=== PATIENT | male | born 1945 | race Caucasian/White ===

== ENCOUNTER → 2019-02-06 | Outpatient (CLI) | payer MEDICARE ==
[~2019-02-06] VITALS: Ht 170 cm; Wt 80.0 kg
[~2019-02-06] MED LIST: CATHETER FLUSH 10 ML SYR IV PRN; REGADENOSON 0.4 MG/5 ML SYR (LEXISCAN) IV ONE; meTOprolol 5 MG/5 ML (LOPRESSOR) VIAL IV ONE; meTOprolol 5 MG/5 ML (LOPRESSOR) VIAL ONE
[2019-02-06 13:22] VITALS: BP 152/100
[2019-02-06 13:23] VITALS: BP 157/92
--- NOTE | 2019-02-06 15:15 | STRESS TEST ---
DATE OF SERVICE: 02/06/2019 LEXISCAN MYOVIEW STRESS TEST REPORT REFERRING PHYSICIAN: Jorge Martinez MD Baseline heart rate is 77. Baseline blood pressure 152/100. Baseline EKG is atrial fibrillation. In summary, the patient was injected with 11.0 mCi of technetium-99 Myoview and the resting images were obtained. Then, the patient received 0.4 mg of Lexiscan followed by 29.8 mCi of technetium-99 Myoview. Throughout the test, there were no EKG changes. The resting and stress images were reviewed and compared in the short axis, horizontal long axis, and vertical long axis views. Review of the images showed diaphragmatic attenuation with reversible ischemia involving the mid to apical inferior wall. SSS is 4, SDS is 4, TID value 0.97. On the gated images, the left ventricle appeared to be in normal size. Calculated ejection fraction 39%, gated images are unreliable due to underlying atrial fibrillation. CONCLUSION: 1. The patient tolerated Lexiscan well. 2. Baseline atrial fibrillation persisted throughout test. 3. Diaphragmatic attenuation with mild reversible ischemia involving the mid to apical inferior wall. 4. Normal left ventricular size, decreased contractility. Calculated ejection fraction 39%, gated images are unreliable due to underlying atrial fibrillation. Job ID: [id number] DocumentID: [id number] Dictated Date: 02/06/2019 14:52:44 Teaseler Date: 02/06/2019 15:14:53 Dictated By: SANDRA LOPEZ MD
== END ==
LOC: CARD 11:36
PROVIDERS: ATTEND Internal Medicine Cardiovascular Disease
DX: I48.19 Other persistent atrial fibrillation (principal); I10 Essential (primary) hypertension; I25.89 Other forms of chronic ischemic heart disease
CPT/HCPCS: 78452; 93017

== ENCOUNTER → 2019-02-06 | Outpatient (CLI) | payer MEDICARE | LOC: EDUNIT# 12:00 → CARD 13:40 | PROVIDERS: ATTEND Family Medicine | DX: I08.1 Rheumatic disorders of both mitral and tricuspid valves (principal); I48.91 Unspecified atrial fibrillation | CPT/HCPCS: 93306 ==

== ENCOUNTER 2019-02-27 08:29 | Day surgery (SDC) | payer MEDICARE ==
[2019-02-27] VITALS (18 sets, daily range): BP systolic 143–173; BP diastolic 78–118
[~2019-02-27] VITALS: Ht 168 cm; Wt 82.0 kg
[2019-02-27] MEDS ORDERED: NS IV 1000 ML 1,000 ML ONE ×2 (09:32→13:02)
[2019-02-27] MEDS ORDERED: LIDOCAINE 1% INJ 20 ML 20 ML VIAL ONE (09:32)
[2019-02-27] MEDS ORDERED: HEParin (CATH LAB) 2,000 ML IV ONE (09:32)
[2019-02-27 10:04] LABS: HEMOGLOBIN 14.6 G/DL (13.3-17.7); MEAN PLATELET VOLUME 9.4 FL (7.4-10.4); RED CELL DISTRIBUTION WIDTH 13.3 % (10.0-14.5); WHITE BLOOD COUNT 9.5 10^3/uL (4.3-11.0)
[2019-02-27 10:04] LABS: BILIRUBIN,URINE NEGATIVE (NEGATIVE); CLARITY,URINE CLEAR; COLOR,URINE YELLOW; GLUCOSE, URINE (UA) NEGATIVE (NEGATIVE); KETONES,URINE NEGATIVE (NEGATIVE); LEUKOCYTE ESTERASE ,URINE 2+ (NEGATIVE); NITRITE,URINE POSITIVE (NEGATIVE); PH,URINE 5 (5-9); PROTEIN,URINE 1+ (NEGATIVE)
[2019-02-27] MEDS: NS IV 1000 ML 1,000 ML IV SCH ×4 (10:05→23:51)
[2019-02-27 10:15] LABS: BACTERIA,URINE LARGE /HPF; RBC,URINE 0-2 /HPF; WBC,URINE 25-50 /HPF
[2019-02-27 10:16] LABS: PROTHROMBIN TIME PATIENT 13.3 SEC (12.2-14.7)
[2019-02-27] MEDS ORDERED: LISI-552 PO (10:19)
[2019-02-27] MEDS ORDERED: GLUC100016 PO (10:19)
[2019-02-27] MEDS ORDERED: METO-387 PO (10:19)
[2019-02-27] MEDS ORDERED: MULT-1029 PO (10:19)
[2019-02-27 10:22] LABS: ALANINE AMINOTRANSFERASE 23 U/L (0-55); ALBUMIN 4.4 GM/DL (3.2-4.5); ALKALINE PHOSPHATASE 96 U/L (40-136); BUN/CREATININE RATIO 19; CARBON DIOXIDE 26 MMOL/L (21-32); CHLORIDE 107 MMOL/L (98-107); CHOLESTEROL 188 MG/DL (< 200); CREATININE SERUM 1.13 MG/DL (0.60-1.30); GFR ESTIMATED > 60; GLUCOSE 95 MG/DL (70-105); HDL CHOLESTEROL 57 MG/DL (40-60); POTASSIUM 3.8 MMOL/L (3.6-5.0); SODIUM 141 MMOL/L (135-145); TOTAL PROTEIN 7.6 GM/DL (6.4-8.2); TRIGLYCERIDES 101 MG/DL (<150); VLDL CHOLESTEROL 20 MG/DL (5-40)
--- NOTE | 2019-02-27 10:22 | Diagnostic Imaging Report ---
INDICATION: Pre-heart catheterization. TIME OF EXAM: 10:06 a.m. FINDINGS: Single view of the chest shows circumscribed nodular density in the right lung base measuring 17 mm. Remainder of lung pereira are clear. No effusion or pneumothorax is seen. IMPRESSION: Right lung nodule. CT chest with contrast would be recommended for further evaluation. Dictated by: Dictated on workstation # [id number]
[2019-02-27] MEDS ORDERED: RANI-613 PO (10:28)
[2019-02-27] MEDS ORDERED: IBUP-2055 PO (10:28)
--- NOTE | 2019-02-27 10:40 | NUR ---
SPOKE WITH THE PT (HE HAD HIS BOTTLES) WELL CALLING [facility]MER YUAN AND DR. ANDREW OFFICE TO COMPLETE THE MED REC. PT SEEMED CONFUSED ON WHAT MEDS HE WAS TAKING. THERE WAS AN EMPTY BOTTLE OF XARELTO DATED 01-10-2019 AND WAS UNDER THE IMPRESSION THAT ONCE THAT BOTTLE WAS GONE TO STOP TAKING AND THAT METOPROLOL WAS THE REPLACEMENT. THERE WAS ALSO AN EMPTY BOTTLE OF LISINOPRIL - HE SAYS HE IS CURRENTLY TAKING HOWEVER I CANT FIND A FILL SINCE 07-09-2018 FOR A 90 DAY SUPPLY. I CALLED DR. LOPEZ'S OFFICE TO GET CLARIFICATION ON THE XARELTO/METOPROLOL CHANGE. THEY DID NOT SHOW ANY NOTES THAT SAID TO ONLY TAKE XARELTO FOR 30 DAYS AND METOPROLOL WAS NOT AN ALTERNATIVE TO SWITCH TO. THEY DID INDICATE THAT THE DETAILED INSTRUCTIONS HE RECEIVED SAID TO QUIT TAKING A DAYS PRIOR TO THIS PROCEDURE. THEY HAD NO IDEA HE ONLY TOOK 30 DAYS WORTH AND THEY ALSO ASSUMED HE WAS STILL ON LISINOPRIL. I LET THE CATH LABS KNOW OF THESE DISCREPANCIES SO THEY COULD BUSINESS RECORDS MANAGER THE PT HOW THEY SAW FIT. 02-06-2019 METOPROLOL Addendum: 02/27/19 at 1121 by IKE MARTIN spool salvager OTC MEDS: IBUPROFEN ZANTAC GLUCOSAMINE
[2019-02-27] MEDS ORDERED: FLU QUADRIvalent (5+ YOA) 2019-2020 (AFLURIA) 0.5 ML IM ONE (10:45)
--- NOTE | 2019-02-27 11:49 | Cardiac Procedure Note-CS/ASA ---
Pre-Procedure Note Pre-Op Procedure Note H&P Reviewed The H&P was reviewed, patient examined and no changes noted. Date H&P Reviewed: Feb 27, 2019 Time H&P Reviewed: 11:49 Conscious Sedation Pre-Proced Time 11:49 ASA Score 3 For ASA 3 and 4: Consider anesthesia and medical clearance. Also, for patients with a history of failed moderate sedation consider anesthesia. Airway Lungs Heart ASA score ASA 1: a normal healthy patient ASA 2: a patient with a mild systemic disease (mid diabetes, controlled hypertension, obesity x ASA 3: a patient with a severe systemic disease that limits activity (angina, COPD, prior Myocardial infarction) ASA 4: a patient with an incapacitating disease that is a constant threat to life (CHF, renal failure) ASA 5: a moribund patient not expected to survive 24 hrs. (ruptured aneurysm) ASA 6: a declared brain- patient whose organs are being harvested. For emergent operations, add the letter E after the classification Mallampati Classification Grade 3 Sedation Plan Analgesia, Amnesia, Plan communicated to team members, Discussed options with patient/fam, Discussed risks with patient/fam The patient is an appropriate candidate to undergo the planned procedure, sedation, and anesthesia. The patient immediately re-assessed prior to indication. SANDRA LOPEZ MD Feb 27, 2019 11:49
[2019-02-27] MEDS ORDERED: MIDAZOLAM 5 MG/5 ML (VERSED) VIAL ONE (12:38)
[2019-02-27] MEDS ORDERED: fentaNYL INJECTION 100 MCG/2 ML AMP ONE (12:38)
[2019-02-27] MEDS ORDERED: ADENOSINE 3 MG/1 ML (ADENOSCAN) 30ML VIAL IV ONE ×2 (13:00→13:01)
[2019-02-27] MEDS ORDERED: HEParin 1000 UNIT/ML (10ML VIAL) FOR BOLUS ONE (13:01)
[2019-02-27] MEDS ORDERED: PATIENT MAY USE OWN MEDS, ALL PO SCH (13:30)
--- NOTE | 2019-02-27 13:33 | Cardiac Cath Report ---
Cardiac Cath Report Physician (s)/Concrete Float Maker (s) Physician SANDRA LOPEZ MD Pre-Procedure Diagnosis Pre-Procedure Diagnosis: coronary artery disease Post-Procedure Note Procedure Start Date: Feb 27, 2019 Name of Procedure: [facility] LV Gram FFR to LAD FFR to Lcx Findings/Procedure Note PROCEDURE NOTE: 73 years old gentleman with history of coronary artery disease, had abnormal stress test, scheduled for cardiac catheterization possible PTCA. After explaining the procedure to the patient, all pros and cons were explained, all questions were answered. The patient signed the consent and then he was placed on the cardiac catheterization laboratory. Groin was prepped SL fashion local anesthesia was used. Sheath placed in the right femoral artery. Francisco right and left catheter were used to access the coronary system. Pigtail was used to access the left ventricular cavity. Left ventriculogram was done next Patient was given 6000 unit of heparin, FL 4.0 guide was used advanced to the left coronary system, FFR wire was advanced into the LAD then adenosine drip was initiated baseline FFR was 0.95 , post adenosine was 0.85. It was pulled back and redirected and reshaped to the ramus intermedius and FFR was 1.0, he had borderline lesion at the proximal circumflex artery. Nonobstructive lesion. At the end of the procedure the sheath was removed. Closure device was used FINDINGS: Hemodynamics LV Aorta ANATOMY: Left Main has mild disease no obstructive disease Left Anterior Descending has moderate stenosis at the proximal portion, FFR across the LAD after adenosine was 0.85 Ramus intermedius is moderate in size with mild disease, FFR 1.0 Left Circumflex is small to moderate in size with [id number] disease nonobstructive disease Right Coronory Artery has mild disease nonobstructive disease LV Gram is normal in size with normal contraction. Estimated ejection fraction 60 percent CONCLUSION: 1. Mild to moderate disease in the proximal LAD, proximal circumflex artery, FFR across the LAD was 0.85 2. Mild to moderate disease in the proximal circumflex artery nonobstructive disease 3. Normal left ventricular size and systolic function estimated ejection fraction 60 percent DISCUSSION AND RECOMMENDATION: maximize medical therapy, add Lipitor 10 mg daily to current medication Anesthesia Type: Conscious Sedation Estimated blood loss (mL): 25 ml Contrast Amount: 83 ml Total Radiation Dose: 785 mGy Post-Procedure Diagnosis Post-operative diagnosis: Coronary artery disease Chest pain Hypertension Hyperlipidemia SANDRA LOPEZ MD Feb 27, 2019 13:33
--- NOTE | 2019-02-27 14:05 | NUR ---
Pt arrived to floor
[2019-02-27] MEDS ORDERED: IBUPROFEN TABLET 200 MG TAB PO PRN (16:45)
[2019-02-27] MEDS ORDERED: meTOprolol 5 MG/5 ML (LOPRESSOR) VIAL IV ONE (17:15)
[2019-02-28] VITALS: BP 157/83
[2019-02-28 04:00] VITALS: BP 132/88
[2019-02-28] MEDS ORDERED: MULTIVIT W/MINERALS TAB (THERAGRAN M) PO SCH (07:00)
--- NOTE | 2019-02-28 08:25 | Cardiology Progress Note ---
Subjective Date Seen by Provider: Feb 28, 2019 Time Seen by Provider: 08:24 Subjective/Events-last exam Patient is feeling well, groin is healing well. No chest pain Review of Systems General: No Chills, No Night Sweats, No Fatigue, No Malaise, No Appetite, No Other HEENT: No Head Aches, No Visual Changes, No Eye Pain, No Ear Pain, No Dysphasia, No Sinus Congestion, No Post Nasal Drip, No Sore Throat, No Other Pulmonary: No Dyspnea, No Cough, No Pleuritic Chest Pain, No Other Cardiovascular: No: Chest Pain, Palpitations, Orthopnea, Paroxysmal Noc. Dyspnea, Edema, Lt Headedness, Other Objective-Cardiology Exam Last Set of Vital Signs Vital Signs 02/28/19 02/28/19 04:00 07:00 Temp 36.3 Pulse 80 Resp 18 B/P (MAP) 132/88 (103) Pulse Ox 96 O2 Delivery Room Air Capillary Refill : Less Than 3 Seconds I&O Intake and Output 02/28/19 00:00 Intake Total 1000 ml Balance 1000 ml Intake IV Total 1000 ml General: Alert, Oriented X3, Cooperative HEENT: Atraumatic, PERRLA Neck: Supple, No JVD, No Thyromegaly Lungs: Clear to Auscultation, Normal Air Movement Heart: Regular Rate, Normal S1, Normal S2, No Murmurs Abdomen: Normal Bowel Sounds, Soft, No Tenderness, No Hepatosplenomegaly, No Masses Extremities: No Clubbing, No Cyanosis, No Edema, Normal Pulses, No Tenderness/Swelling Skin: No Rashes, No Breakdown, No Significant Lesion Neuro: Normal Gait, Normal Speech, Strength at 5/5 X4 Ext, Normal Tone, Sensation Intact Psych/Mental Status: Mental Status NL, Mood NL Results Lab Laboratory Tests 02/27/19 09:57 A/P-Cardiology Admission Diagnosis Coronary artery disease Hypertension Hyperlipidemia Assessment/Plan Coronary artery disease mild to moderate, medical therapy Hypertension, continue current medication Hyperlipidemia Will discharge home today Clinical Quality Measures DVT/VTE Risk/Contraindication: Risk Factor Score Per Nursin RFS Level Per Nursing on Admit: 4+=Very High SANDRA LOPEZ MD Feb 28, 2019 08:25
[2019-02-28] MEDS ORDERED: ATOR10TA66 PO (08:27)
[2019-02-28] MEDS ORDERED: ASPI-586 PO (08:27)
[2019-02-28 08:30] VITALS: BP 147/92
[2019-02-28] MEDS ORDERED: NON-FORMULARY MEDICATION 1 EA EA (Glucosamine Sulfate 2Kcl (Glucosamine) 1,000 MG) PO SCH (09:00)
[2019-02-28] MEDS ORDERED: FAMOTIDINE 20 MG (PEPCID) TABLET PO SCH (09:00)
--- NOTE | 2019-02-28 10:25 | NUR ---
1025 patient discharged to home via wheelchair, accompanied by .
--- NOTE | 2019-02-28 16:13 | Discharge Inst-Post CATH ---
Discharge Inst-CATH/EP Problems Reviewed?: Yes Post Cardiac Cath/EP D/C Inst Follow Up/Plan Appointment with Dr. LOPEZ's office in 2-4 weeks <b>CARDIAC CATH/EP PROCEDURE DISCHARGE INSTRUCTIONS</b> ACTIVITY * Go Home directly and rest. * Limit activity of the leg (or wrist if it was used) for 7 days including aerobics, swimming, jogging, bicycling, etc. * Restrict stair-climbing for 7 days if possible, if not, climb up with your non-cath leg, then bring together on the same step. * Avoid lifting, pushing, pulling or excessive movement of the affected extremity for 7 days. * Customary sexual activity may be resumed after 2 days-use caution not to use a position that strains or causes pain to the affected extremity. * No driving for 24 hours. * NO SMOKING. * Avoid straining for bowel movements for 7 days. * Gentle walking on level ground is allowed. * Returning to work will depend on the type of procedure and the results. Your doctor will discuss this with you. CALL YOUR DOCTOR FOR ANY OF THE FOLLOWING: *If bleeding from the puncture site occurs- Apply gentle pressure to site with clean cloth and call your doctor or EMS. * If a knot or lump forms under the skin, increases in size, or causes pain. * If bruising appears to be worsening or moving further down your leg instead of disappearing. * Temperature above 101 F. CARE OF YOUR GROIN INCISION; * Bruising or purple discoloration of the skin near the puncture site is common. * You may shower only, no bathtub bathing for 5 days. Be careful to avoid slipping as your leg may feel stiff. * If a closure device was used on your femoral artery, please see the attached guide regarding care of the device and your leg. * Leave dressing on FOR 24 hours. CARE OF YOUR WRIST INCISION; * Bruising or purple discoloration of the skin near the puncture site is common. * You may shower. * DO NOT submerge wrist. * Leave dressing on FOR 24 hours. SANDRA LOPEZ MD Feb 28, 2019 16:13
== END 2019-02-28 10:10 ==
LOC: CATH 08:29 → CSD 14:15 → CATH 02-28 10:10 → CSD 02-28 15:43
PROVIDERS: ATTEND Internal Medicine Cardiovascular Disease
DX: I25.10 Atherosclerotic heart disease of native coronary artery without angina pectoris (principal); I48.91 Unspecified atrial fibrillation; I10 Essential (primary) hypertension; E78.5 Hyperlipidemia, unspecified; Z79.899 Other long term (current) drug therapy; Z87.891 Personal history of nicotine dependence; Z88.5 Allergy status to narcotic agent; Z79.82 Long term (current) use of aspirin
CPT/HCPCS: 36415; 71045; 80053; 80061; 81000; 85027; 85610; 85730; 87077; 87081; 87088; 87186; 93458

== ENCOUNTER 2019-03-21 15:11 | Observation (INO) | payer MEDICARE ==
[~2019-03-21] VITALS: Ht 170.2 cm; Wt 83.7 kg
[~2019-03-21 15:11] MED LIST changes: +ASPI-586 PO; +ATOR10TA66 PO; -CATHETER FLUSH 10 ML SYR IV PRN; +GLUC100016 PO; +IBUP-2055 PO; +LISI-552 PO; +METO-387 PO; +MULT-1029 PO; +RANI-613 PO; -REGADENOSON 0.4 MG/5 ML SYR (LEXISCAN) IV ONE; -meTOprolol 5 MG/5 ML (LOPRESSOR) VIAL IV ONE; -meTOprolol 5 MG/5 ML (LOPRESSOR) VIAL ONE
[2019-03-21] MEDS ORDERED: fentaNYL INJECTION 100 MCG/2 ML AMP ONE (15:29)
[2019-03-21] MEDS ORDERED: fentaNYL INJECTION 100 MCG/2 ML AMP IVP ONE ×2 (15:30→16:00)
--- NOTE | 2019-03-21 15:35 | ED Trauma-Multisystem ---
General Stated Complaint: FALL Activation Level: Level 2 Source of Information: Patient Exam Limitations: No Limitations History of Present Illness Date Seen by Provider: Mar 21, 2019 Time Seen by Provider: 15:31 Initial Comments To ER by private vehicle accompanied by his with reports of a fall. 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 He remembers everything that happened no loss of consciousness. He has pain and deformity to the right shoulder, bruising and pain to the left hand and some blood around the lips. He denies any abdominal pain, does complain of right-sided chest pain. Denies back pain or leg pain. Had a recent cardiac catheterization without intervention on 02/27/19. He is on xarelto for a-fib. Occurred: Just Prior to Arrival Severity: Moderate Pain/Injury Location: Chest, Face, Head, Upper Extremity Modifying Factors: No Movement Loss of Consciousness: No Loss of Consciousness Associated Symptoms (Fall): No Abdominal Pain; Chest Pain; No Confusion, No Dizziness, No Headache, No Neck Pain Allergies and Home Medications Allergies Coded Allergies: morphine (Verified Allergy, Unknown, 02/27/19) Home Medications Aspirin 81 Mg Tablet.dr, 81 MG PO DAILY Prescribed by: SANDRA LOPEZ on 02/28/19826 Atorvastatin Calcium 10 Mg Tablet, 10 MG PO HS Prescribed by: SANDRA LOPEZ on 02/28/19826 Glucosamine Sulfate 2Kcl 1,000 Mg Tablet, 1,000 MG PO DAILY, (Reported) Ibuprofen 200 Mg Tablet, 400 MG PO Q6H PRN for PAIN-MILD, (Reported) Metoprolol Succinate 25 Mg Tab.er.24h, 25 MG PO DAILY, (Reported) Multivit-Min/FA/Lycopene/Lut 1 Each Tablet, 1 EACH PO DAILY, (Reported) Ranitidine HCl 150 Mg Tablet, 150 MG PO DAILY PRN for HEARTBURN, (Reported) Patient Home Medication List Home Medication List Reviewed: Yes Review of Systems Review of Systems Constitutional: see HPI Eyes: No Symptoms Reported Ears: No Symptoms Reported Nose: No Symptoms Reported Mouth: No Symptoms Reported Throat: No Symptoms to Report Respiratory: no symptoms reported Cardiovascular: No Symptoms Reported Genitourinary: no symptoms reported Musculoskeletal: see HPI Skin: no symptoms reported Psychiatric/Neurological: No Symptoms Reported Past Utnmhsa-Hfkuea-Fzydek Hx Patient Social History Recent Foreign Travel: No Contact w/Someone Who Travel: No Past Medical History Eye Surgery Respiratory: No Currently Using CPAP: No Currently Using BIPAP: No Cardiac: Yes Atrial Fibrillation Neurological: No Gastrointestinal: No Cancer: Yes Bladder Did You Recieve Any Treatments: Yes What Type of Treatment Did You: Surgical Intervention Physical Exam Vital Signs Vital Signs - First Documented 03/21/19 15:18 Temp 36.4 Pulse 90 Resp 22 B/P (MAP) 130/87 (101) Pulse Ox 95 O2 Delivery Room Air Height, Weight, BMI Height: '" Weight: lbs. oz. kg; 29.05 BMI Method: General Appearance: WD/WN, Anxious, Other (paged is a type II trauma. He has some dried blood around his lips, several missing teeth that have been missing for a long time he states, no loose teeth, no facial pain or head pain or neck pain. Despite that he was placed in a rigid cervical collar pending imaging. Complains of some pain to the right chest that is tender to palpation there is deformity of the right shoulder, suspect anterior dislocation. Normal sensation and motor function of the right hand. There is some swelling to the dorsal aspect of the left hand. The abdomen is round soft and nontender. Lung sounds are equal. Pelvis is stable. Lower extremities are unremarkable.) Head: Contusions; No Active Bleeding Eyes: Bilateral Eye Normal Inspection Ears, Nose, Throat: Hearing Grossly Normal, Other (couple of loose teeth but he states these were loose before. There is a small laceration to the buccal surface bottom lip on the right.) Neck: Normal Inspection Cardiovascular: Regular Rate, Rhythm, Normal Peripheral Pulses Respiratory: No Accessory Muscle Use, No Respiratory Distress Gastrointestinal: Normal Bowel Sounds, Non Tender, Soft Extremity: Pelvis Stable, Other (limited range of motion to the right arm due to shoulder pain) Neurologic/Psychiatric: Alert, Oriented x3, No Motor/Sensory Deficits Skin: Normal Color, Warm/Dry Greta Coma Score Best Eye Response (Valentines): (4) Open Spontaneously Best Verbal Response (Valentines): (5) Oriented Best Motor Response (Greta): (6) Obeys Commands Greta Total: 15 Progress/Results/Core Measures Results/Orders Lab Results Laboratory Tests Test 03/21/19 15:20 03/21/19 17:33 Range/Units White Blood Count 20.1 H 4.3-11.0 10^3/uL Red Blood Count 4.91 4.35-5.85 10^6/uL Hemoglobin 14.1 13.3-17.7 G/DL Hematocrit 41 40-54 % Mean Corpuscular Volume 84 80-99 FL Mean Corpuscular Hemoglobin 29 25-34 PG Mean Corpuscular Hemoglobin Concent 34 32-36 G/DL Red Cell Distribution Width 13.5 10.0-14.5 % Platelet Count 350 130-400 10^3/uL Mean Platelet Volume 9.1 7.4-10.4 FL Sodium Level 141 135-145 MMOL/L Potassium Level 5.0 3.6-5.0 MMOL/L Chloride Level 106 98-107 MMOL/L Carbon Dioxide Level 23 21-32 MMOL/L Anion Gap 12 5-14 MMOL/L Blood Urea Nitrogen 23 H 7-18 MG/DL Creatinine 1.42 H 0.60-1.30 MG/DL Estimat Glomerular Filtration Rate 49 BUN/Creatinine Ratio 16 Glucose Level 160 H 70-105 MG/DL Calcium Level 9.5 8.5-10.1 MG/DL Total Bilirubin 0.8 0.1-1.0 MG/DL Direct Bilirubin 0.4 H 0.0-0.3 MG/DL Indirect Bilirubin 0.4 MG/DL Aspartate Amino Transf (AST/SGOT) 32 5-34 U/L Alanine Aminotransferase (ALT/SGPT) 35 0-55 U/L Alkaline Phosphatase 92 40-136 U/L Total Protein 7.8 6.4-8.2 GM/DL Albumin 4.6 H 3.2-4.5 GM/DL Serum Alcohol < 10 <10 MG/DL Urine Color YELLOW Urine Clarity CLEAR Urine pH 6.0 5-9 Urine Specific Winder 1.015 L 1.016-1.022 Urine Protein NEGATIVE NEGATIVE Urine Glucose (UA) NEGATIVE NEGATIVE Urine Ketones NEGATIVE NEGATIVE Urine Nitrite POSITIVE NEGATIVE Urine Bilirubin NEGATIVE NEGATIVE Urine Urobilinogen 0.2 < = 1.0 MG/DL Urine Leukocyte Esterase TRACE NEGATIVE Urine RBC (Auto) TRACE-I NEGATIVE Urine RBC 2-5 H /HPF Urine WBC 5-10 H /HPF Urine Squamous Epithelial Cells RARE /HPF Urine Crystals NONE /LPF Urine Bacteria LARGE H /HPF Urine Casts NONE /LPF Urine Mucus NEGATIVE /LPF Urine Culture Indicated YES My Orders Orders - BHATT,PETER J FISH PROCESSOR Ct Head/Cervical Spine Wo (03/21/19 15:29) Ct Chest/Abdomen/Pelvis W (03/21/19 15:29) Shoulder, Right, 3 Views (03/21/19 15:29) Hand, Left, 3 Views (03/21/19 15:29) Cbc No Diff (03/21/19 15:29) Basic Metabolic Panel (03/21/19 15:29) Liver Panel (03/21/19 15:29) Alcohol (03/21/19 15:29) Ua Culture If Indicated (03/21/19 15:29) Type And Screen (03/21/19 15:29) Chest 1 View, Ap/Pa Only (03/21/19 15:29) End Tidal Co2 (03/21/19 15:29) Monitor-Rhythm Ecg Trace Only (03/21/19 15:29) Ed Iv/Invasive Line Start (03/21/19 15:29) Fentanyl Injection (Sublimaze Injection (03/21/19 15:30) Fentanyl Injection (Sublimaze Injection (03/21/19 15:29) Iohexol Injection (Omnipaque 350 Mg/Ml 1 (03/21/19 16:15) Received Contrast (Hold Metformin- Contr (03/21/19 16:15) Sodium Chloride Flush (Catheter Flush Sy (03/21/19 16:15) Ns (Ivpb) (Sodium Chloride 0.9% Ivpb Bag (03/21/19 16:15) Etomidate Injection (Amidate Injection) (03/21/19 16:30) Ns Iv 1000 Ml (Sodium Chloride 0.9%) (03/21/19 16:30) Ondansetron Injection (Zofran Injectio (03/21/19 16:30) Shoulder, Right, 1 View (03/21/19 16:52) Urine Culture (03/21/19 17:33) Medications Given in ED Current Medications Medications Dose Ordered Sig/Jm Route Start Time Stop Time Status Last Admin Dose Admin Etomidate 15 mg ONCE ONCE IV 03/21/19 16:30 03/21/19 16:31 DC 03/21/19 16:43 15 MG Fentanyl Citrate 50 mcg ONCE ONCE IVP 03/21/19 15:30 03/21/19 15:32 DC 03/21/19 15:33 50 MCG Fentanyl Citrate 50 mcg ONCE ONCE IVP 03/21/19 16:00 03/21/19 16:01 DC 03/21/19 15:53 50 MCG Iohexol 100 ml ONCE ONCE IV 03/21/19 16:15 03/21/19 16:16 DC 03/21/19 16:08 100 ML Sodium Chloride 10 ml NEEDED PRN IV 03/21/19 16:15 03/21/19 16:08 10 ML Sodium Chloride 100 ml ONCE ONCE IV 03/21/19 16:15 03/21/19 16:16 DC 03/21/19 16:08 80 ML Vital Signs/I&O 03/21/19 03/21/19 03/21/19 03/21/19 15:18 16:40 16:40 16:45 Temp 36.4 Pulse 90 118 101 Resp 22 39 20 B/P (MAP) 130/87 (101) 168/98 131/114 Pulse Ox 95 92 97 O2 Delivery Room Air Nasal Cannula Room Air Nasal Cannula O2 Flow Rate 2.00 3.00 03/21/19 03/21/19 03/21/19 16:55 17:00 17:30 Pulse 98 94 91 Resp 25 20 19 B/P (MAP) 132/95 134/103 156/98 Pulse Ox 93 94 98 O2 Delivery Nasal Cannula Room Air Room Air O2 Flow Rate 3.00 Diagnostic Imaging Diagonstic Imaging: CT Comments NAME: JUAN GOLDBERG [facility] REC#: [id number] PT STATUS: REG ER : 1945 PHYSICIAN: KENAN BHATT APRN ADMIT DATE: 03/21/19/ER Signed POSDate of Exam:03/21/19 CT HEAD/CERVICAL SPINE WO PROCEDURE: CT head and CT cervical spine without contrast. TECHNIQUE: Multiple contiguous axial images were obtained through the brain and cervical spine without the use of intravenous contrast. Sagittal and coronal reformations through the cervical spine were then performed. Auto Exposure Controls were utilized during the CT exam to meet ALARA standards for radiation dose reduction. INDICATION: Fall from height, 10 feet. COMPARISON: No prior studies are available for comparison. CT HEAD: Ventricles and sulci are within normal limits. No sulcal effacement or midline shift is detected. No acute intra-axial or extra-axial hemorrhage is detected. Cisterns are patent. Visualized paranasal sinuses are clear. IMPRESSION: No acute intracranial process is detected. CT CERVICAL SPINE: Alignment is normal. There is degenerative disc disease at multiple levels with variable disc space narrowing and marginal spurring. No fracture or subluxation is identified. Prevertebral tissues are within normal limits. Odontoid is intact. IMPRESSION: Cervical spondylosis. No acute bony abnormality is detected. Dictated by: Dictated on workstation # [id number] Dict: 03/21/19 1547 Trans: 03/21/19 1556 [facility] [id number] Interpreted by: CHEMA TOUSSAINT MD Electronically signed by: CHEMA TOUSSAINT MD 03/21/19 1556 CHRISTINA: JUAN GOLDBERG [facility] REC#: [id number] PT STATUS: REG ER : 1945 PHYSICIAN: KENAN BHATT APRN ADMIT DATE: 03/21/19/ER Draft POSDate of Exam:03/21/19 CT CHEST/ABDOMEN/PELVIS W EXAMINATION: CT Chest, Abdomen, and Pelvis with intravenous contrast. TECHNIQUE: Multiple contiguous axial images were obtained through the chest, abdomen, and pelvis after the uneventful administration of intravenous contrast. All CT scans use one or more of the following dose optimizing techniques: automated exposure control, MA and/or KvP adjustment based on a patient size and exam type, or iterative reconstruction. HISTORY: Fall. COMPARISON: None available. FINDINGS: The lungs are clear without edema or pneumonia. No pleural effusion or pneumothorax. No suspicious nodules. A 17 mm fat-containing nodule is seen in the right lower lobe in keeping with a hamartoma. Heart size is normal. 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 There are severe coronary artery calcifications. No pericardial effusion. Aorta is normal in caliber. There is no axillary or supraclavicular lymphadenopathy. There is no mediastinal lymphadenopathy. There are numerous cysts in the liver. A cyst in segment measures 4.7 cm and contains internal area of high attenuation. This is indeterminate and may represent hemorrhage into a cyst versus a cyst with an enhancing nodule. There is no biliary ductal dilation. Gallbladder is normal. Pancreas is normal. Spleen is normal. Adrenal glands are normal. The kidneys are normal. There is no hydronephrosis. Urinary bladder is normal. There are no dilated loops of large or small bowel. No obstruction or inflammation. No free fluid or air. No abdominal or pelvic lymphadenopathy. Aorta is normal in caliber without aneurysm. There are no suspicious osseous lesions. IMPRESSION: 1. Cyst in hepatic segment contains internal high attenuation. This may represent hemorrhage into this cyst as it is present dependently. However, an enhancing soft tissue nodule is in the differential as well. Six-week follow-up CT with and without intravenous contrast is recommended to ensure that this is resolved, and if not, determine if it is enhancing. 2. Otherwise, no evidence for trauma in the chest, abdomen, or pelvis. 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 Dictated on workstation # [id number] Dict: 03/21/19 1607 Trans: 03/21/19 1618 [id number] Interpreted by: JUAN FELDER MD Electronically signed by: NAME: JUAN GOLDBERG [facility] REC#: [id number] PT STATUS: REG ER : 1945 PHYSICIAN: KENAN BHATT APRN ADMIT DATE: 03/21/19/ER Signed POSDate of Exam:03/21/19 HAND, LEFT, 3 VIEWS INDICATION: Left hand injury from a fall. EXAMINATION: Three views of the left hand were obtained. FINDINGS: Impacted fracture of the distal radius with slight dorsal angulation of the distal component. There are no fractures seen in the hand. There are osteoarthritic changes present. IMPRESSION: Impacted fracture of distal radius with slight dorsal angulation. There is an associated ulnar styloid fracture. Dictated by: Dictated on workstation # [id number] Dict: 03/21/19 1626 Trans: 03/21/19 1644 [facility] [id number] Interpreted by: TYSON LANDAVERDE MD Electronically signed by: TYSON LANDAVERDE MD 03/21/191643 NAME: JUAN GOLDBERG [facility] REC#: [id number] PT STATUS: REG ER : 1945 PHYSICIAN: KENAN BHATT APRN ADMIT DATE: 03/21/19/ER Draft POSDate of Exam:03/21/19 SHOULDER, RIGHT, 1 VIEW CLINICAL HISTORY: Postreduction images. COMPARISON: Right shoulder radiographs performed earlier the same date. TECHNIQUE: Single view of the right shoulder was obtained. FINDINGS: A single frontal radiograph of the right shoulder demonstrates improved alignment of the right glenohumeral joint. No displaced fractures are identified. The surrounding soft tissues are unremarkable. IMPRESSION: 1. Interval reduction of the anterior dislocation of the right shoulder with improved alignment of the right glenohumeral joint. No displaced fractures are identified in the right shoulder. Dictated on workstation # [id number] Dict: 03/21/19 1719 Trans: 03/21/19 1721 [facility] [id number] Interpreted by: KATHY CRAFT DO Electronically signed by: Departure Communication (Admissions) Time/Spoke to Admitting Phy: 16:[address] Granado, will admit observation overnight because of the use of anticoagulants with head injury. Patient is agreeable to staying. 1620-rigid c-collar removed 1650-conscious sedation was done at this time using 15 mg of etomidate, just before this he received 2 separate doses of 50 g of fentanyl. He tolerated well and the shoulder was easily reduced with one attempt.--X-ray pending. He then awakened easily shortly thereafter and felt much better in regards to pain. He was placed in a shoulder immobilizer which he needs to wear for one week with some gentle swinging pendulum exercises once or twice a day during this time, then he can remove the sling and follow-up with orthopedics. Because of the IV in the antecubital fossa of the left forearm and the right shoulder needing to be immobilized, the blood pressure cuff is on the left upper arm, he was placed in a volar splint (instead of sugar tong splint) using 4 inch Ortho-Glass for the left distal radius fracture. He'll need to wear this at all times until he follows up with orthopedics in 1-2 weeks. 1713-postreduction x-ray done appears that the proximal humerus is high in the glenoid fossa, however, he has full active range of motion with abduction and no pain on movement of the shoulder. Impression Primary Impression: Closed head injury Qualified Codes: S09.90XA - Unspecified injury of head, initial encounter Additional Impressions: Anticoagulant long-term use Atrial fibrillation Qualified Codes: I48.91 - Unspecified atrial fibrillation Dislocation of right shoulder joint Qualified Codes: S43.004A - Unspecified dislocation of right shoulder joint, initial encounter Left radial fracture Qualified Codes: S52.592A - Other fractures of lower end of left radius, in itial encounter for closed fracture Disposition: ADMITTED INPATIENT Condition: Stable Admissions Decision to Admit Reason: Admit from ER (Trauma) Decision to Admit/Date: Mar 21, 2019 Time/Decision to Admit Time: 16:49 Departure-Patient Inst. Referrals: EDINSON FARNSWORTH MD (PCP/Family) Primary Care Physician KENAN BHATT APRN Mar 21, 2019 15:35 POS
[2019-03-21 15:45] LABS: HEMOGLOBIN 14.1 G/DL (13.3-17.7); MEAN PLATELET VOLUME 9.1 FL (7.4-10.4); RED CELL DISTRIBUTION WIDTH 13.5 % (10.0-14.5); WHITE BLOOD COUNT 20.1 10^3/uL (4.3-11.0)
--- NOTE | 2019-03-21 15:51 | Diagnostic Imaging Report ---
PROCEDURE: CT head and CT cervical spine without contrast. TECHNIQUE: Multiple contiguous axial images were obtained through the brain and cervical spine without the use of intravenous contrast. Sagittal and coronal reformations through the cervical spine were then performed. Auto Exposure Controls were utilized during the CT exam to meet ALARA standards for radiation dose reduction. INDICATION: Fall from height, 10 feet. COMPARISON: No prior studies are available for comparison. CT HEAD: Ventricles and sulci are within normal limits. No sulcal effacement or midline shift is detected. No acute intra-axial or extra-axial hemorrhage is detected. Cisterns are patent. Visualized paranasal sinuses are clear. IMPRESSION: No acute intracranial process is detected. CT CERVICAL SPINE: Alignment is normal. There is degenerative disc disease at multiple levels with variable disc space narrowing and marginal spurring. No fracture or subluxation is identified. Prevertebral tissues are within normal limits. Odontoid is intact. IMPRESSION: Cervical spondylosis. No acute bony abnormality is detected. Dictated by: Dictated on workstation # [id number]
[2019-03-21 16:12] LABS: ALANINE AMINOTRANSFERASE 35 U/L (0-55); ALBUMIN 4.6 GM/DL (3.2-4.5); ALKALINE PHOSPHATASE 92 U/L (40-136); BILIRUBIN,DIRECT 0.4 MG/DL (0.0-0.3); BILIRUBIN,INDIRECT 0.4 MG/DL; BILIRUBIN,TOTAL 0.8 MG/DL (0.1-1.0); BUN/CREATININE RATIO 16; CALCIUM 9.5 MG/DL (8.5-10.1); CARBON DIOXIDE 23 MMOL/L (21-32); CHLORIDE 106 MMOL/L (98-107); CREATININE SERUM 1.42 MG/DL (0.60-1.30); GFR ESTIMATED 49; GLUCOSE 160 MG/DL (70-105); SODIUM 141 MMOL/L (135-145); TOTAL PROTEIN 7.8 GM/DL (6.4-8.2)
[2019-03-21] MEDS ORDERED: HOLD METFORMIN - RECEIVED CONTRAST 20 ML VIAL IV SCH (16:15)
[2019-03-21] MEDS ORDERED: CATHETER FLUSH 10 ML SYR IV PRN (16:15)
[2019-03-21] MEDS ORDERED: IOHEXOL 350 MG/ML 100 ML (OMNIPAQUE 350) VIAL IV ONE (16:15)
[2019-03-21] MEDS ORDERED: NS 100 ML (IVPB) BAG IV ONE (16:15)
--- NOTE | 2019-03-21 16:19 | Diagnostic Imaging Report ---
EXAMINATION: CT Chest, Abdomen, and Pelvis with intravenous contrast. TECHNIQUE: Multiple contiguous axial images were obtained through the chest, abdomen, and pelvis after the uneventful administration of intravenous contrast. All CT scans use one or more of the following dose optimizing techniques: automated exposure control, MA and/or KvP adjustment based on a patient size and exam type, or iterative reconstruction. HISTORY: Fall. COMPARISON: None available. FINDINGS: The lungs are clear without edema or pneumonia. No pleural effusion or pneumothorax. No suspicious nodules. A 17 mm fat-containing nodule is seen in the right lower lobe in keeping with a hamartoma. Heart size is normal. 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 There are severe coronary artery calcifications. No pericardial effusion. Aorta is normal in caliber. There is no axillary or supraclavicular lymphadenopathy. There is no mediastinal lymphadenopathy. There are numerous cysts in the liver. A cyst in segment measures 4.7 cm and contains internal area of high attenuation. This is indeterminate and may represent hemorrhage into a cyst versus a cyst with an enhancing nodule. There is no biliary ductal dilation. Gallbladder is normal. Pancreas is normal. Spleen is normal. Adrenal glands are normal. The kidneys are normal. There is no hydronephrosis. Urinary bladder is normal. There are no dilated loops of large or small bowel. No obstruction or inflammation. No free fluid or air. No abdominal or pelvic lymphadenopathy. Aorta is normal in caliber without aneurysm. There are no suspicious osseous lesions. IMPRESSION: 1. Cyst in hepatic segment contains internal high attenuation. This may represent hemorrhage into this cyst as it is present dependently. However, an enhancing soft tissue nodule is in the differential as well. Six-week follow-up CT with and without intravenous contrast is recommended to ensure that this is resolved, and if not, determine if it is enhancing. 2. Otherwise, no evidence for trauma in the chest, abdomen, or pelvis. 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 Dictated by: Dictated on workstation # [id number]
--- NOTE | 2019-03-21 16:29 | Diagnostic Imaging Report ---
INDICATION: Injury from a fall. EXAMINATION: Portable chest at 4:08 p.m. FINDINGS: There is a 2 cm well-circumscribed nodule in the right lower lung that appears unchanged from 02/27/2019. This resembled a hamartoma on a recent CT. There are no infiltrates, effusions or pneumothoraces. IMPRESSION: No acute abnormality in the chest. Dictated by: Dictated on workstation # [id number]
[2019-03-21] MEDS ORDERED: NS IV 1000 ML 1,000 ML IV SCH ×2 (16:30→18:45)
[2019-03-21] MEDS ORDERED: ONDANSETRON 4 MG/2 ML (SDV) Z0FRAN IVP ONE (16:30)
[2019-03-21] MEDS ORDERED: ETOMIDATE IV SOLN 20 MG/10 ML VIAL IV ONE (16:30)
--- NOTE | 2019-03-21 16:30 | Diagnostic Imaging Report ---
INDICATION: Left hand injury from a fall. EXAMINATION: Three views of the left hand were obtained. FINDINGS: Impacted fracture of the distal radius with slight dorsal angulation of the distal component. There are no fractures seen in the hand. There are osteoarthritic changes present. IMPRESSION: Impacted fracture of distal radius with slight dorsal angulation. There is an associated ulnar styloid fracture. Dictated by: Dictated on workstation # [id number]
--- NOTE | 2019-03-21 16:31 | Diagnostic Imaging Report ---
Indication: Right shoulder injury 3 views of the right shoulder show anterior dislocation of the right shoulder. There is no appreciable fracture. IMPRESSION: Anterior dislocation of the right shoulder Dictated by: Dictated on workstation # [id number]
--- NOTE | 2019-03-21 17:00 | NUR ---
PT ALERT AND TALKING AT THIS. VSS.
--- NOTE | 2019-03-21 17:22 | Diagnostic Imaging Report ---
CLINICAL HISTORY: Postreduction images. COMPARISON: Right shoulder radiographs performed earlier the same date. TECHNIQUE: Single view of the right shoulder was obtained. FINDINGS: A single frontal radiograph of the right shoulder demonstrates improved alignment of the right glenohumeral joint. No displaced fractures are identified. The surrounding soft tissues are unremarkable. IMPRESSION: 1. Interval reduction of the anterior dislocation of the right shoulder with improved alignment of the right glenohumeral joint. No displaced fractures are identified in the right shoulder. Dictated by: Dictated on workstation # [id number]
[2019-03-21 17:42] LABS: BILIRUBIN,URINE NEGATIVE (NEGATIVE); CLARITY,URINE CLEAR; COLOR,URINE YELLOW; GLUCOSE, URINE (UA) NEGATIVE (NEGATIVE); KETONES,URINE NEGATIVE (NEGATIVE); LEUKOCYTE ESTERASE ,URINE TRACE (NEGATIVE); NITRITE,URINE POSITIVE (NEGATIVE); PROTEIN,URINE NEGATIVE (NEGATIVE)
--- NOTE | 2019-03-21 17:42 | History & Physical-Surgical ---
CLARICE FLOR MED STUDENT 03/21/19 1742: History of Present Illness History of Present Illness Reason for visit/HPI Mr. Amor arrived in the ED after falling 10 feet off of scaffolding onto his right side. The scaffolding hit him in the head after he fell. In the ER he was found to have dislocated R shoulder and a broken L wrist. His shoulder was put in a sling and his wrist was splinted. He also complains of chest pain and flank pain near the R shoulder, attributes some pain to ribs. Denies having pain in the shoulder itself, but does state there is tingling in the fingers of his R arm. He reports his wrist pain is 5/10, flank pain is 3/10. Date of Admission 03/21/19 Date Seen by a Provider: Mar 21, 2019 Time Seen by a Provider: 05:00 I consulted on this patient on 03/21/19 17:37 Attending Physician Admitting Physician Jorge Martinez MD Consult Allergies and Home Medications Allergies Coded Allergies: morphine (Verified Allergy, Unknown, 02/27/19) Home Medications Aspirin 81 Mg Tablet.dr, 81 MG PO DAILY Prescribed by: SANDRA LOPEZ on 02/28/19826 Atorvastatin Calcium 10 Mg Tablet, 10 MG PO HS Prescribed by: SANDRA LOPEZ on 02/28/19826 Glucosamine Sulfate 2Kcl 1,000 Mg Tablet, 1,000 MG PO DAILY, (Reported) Ibuprofen 200 Mg Tablet, 400 MG PO Q6H PRN for PAIN-MILD, (Reported) Metoprolol Succinate 25 Mg Tab.er.24h, 25 MG PO DAILY, (Reported) Multivit-Min/FA/Lycopene/Lut 1 Each Tablet, 1 EACH PO DAILY, (Reported) Ranitidine HCl 150 Mg Tablet, 150 MG PO DAILY PRN for HEARTBURN, (Reported) Past Losrrst-Qggqjc-Gerupm Hx Patient Social History Alcohol Use: Denies Use Recreational Drug Use: No Smoking Status: Former Smoker (.5 ppd starting at age of 17 to 19, quit 6 to 7 years ago) Type Used: Cigarettes Recent Foreign Travel: No Contact w/Someone Who Travel: No Recent Infectious Disease Expo: No Immunizations Up To Date Tetanus Booster (TDap): Less than 5yrs PED Vaccines UTD: Yes Surgeries History of Surgeries: Yes (BLADDER DUE TO CANCER) Surgeries: Bladder Surgery, Eye Surgery Respiratory History of Respiratory Disorde: No Cardiovascular History of Cardiac Disorders: Yes Cardiac Disorders: Atrial Fibrillation Neurological History of Neurological Disord: No Gastrointestinal History of Gastrointestinal Di: No Endocrine History of Endocrine Disorders: No Cancer History of Cancer: Yes Cancer: Bladder Psychosocial History of Psychiatric Problem: No Blood Transfusions History of Blood Disorders: No Family Medical History Other unknown, states was not raised around his family Review of Systems Constitutional: No chills, No fever EENTM: No nose congestion, No throat pain Respiratory: No cough, No short of breath Cardiovascular: chest pain (related to shoulder); No edema, No palpitations Gastrointestinal: No abdominal pain, No constipation, No diarrhea; heartburn; No melena, No nausea Genitourinary: No dysuria; frequency; No hematuria Musculoskeletal: joint pain (L wrist, R ribs), joint swelling (L wrist) Psychiatric/Neurological: Denies Numbness, Denies Paresthesia; Tingling (R fingers) Physical Exam Vital Signs Vital Signs - First Documented 03/21/19 15:18 Temp 36.4 Pulse 90 Resp 22 B/P (MAP) 130/87 (101) Pulse Ox 95 O2 Delivery Room Air Capillary Refill : Height, Weight, BMI Height: '" Weight: lbs. oz. kg; 27.00 BMI Method: General Appearance: WD/WN, Mild Distress Neck: Non Tender, Supple Respiratory: Lungs Clear, Normal Breath Sounds, No Accessory Muscle Use, No Respiratory Distress Cardiovascular: No Murmur, Normal Peripheral Pulses, Irregularly Irregular Gastrointestinal: Normal Bowel Sounds, No Organomegaly, Non Tender, Soft Extremity: No Calf Tenderness, No Pedal Edema, Other (R arm in a sling, L wrist splinted) Neurologic/Psychiatric: Alert, Oriented x3, Normal Mood/Affect Skin: Normal Color, Warm/Dry Lymphatic: No Adenopathy Data Review Labs Laboratory Tests 03/21/19 15:20: White Blood Count 20.1H, Red Blood Count 4.91, Hemoglobin 14.1, Hematocrit 41, Mean Corpuscular Volume 84, Mean Corpuscular Hemoglobin 29, Mean Corpuscular Hemoglobin Concent 34, Red Cell Distribution Width 13.5, Platelet Count 350, Mean Platelet Volume 9.1, Sodium Level 141, Potassium Level 5.0, Chloride Level 106, Carbon Dioxide Level 23, Anion Gap 12, Blood Urea Nitrogen 23H, Creatinine 1.42H, Estimat Glomerular Filtration Rate 49, BUN/Creatinine Ratio 16, Glucose Level 160H, Calcium Level 9.5, Total Bilirubin 0.8, Direct Bilirubin 0.4H, Indirect Bilirubin 0.4, Aspartate Amino Transf (AST/SGOT) 32, Alanine Aminotransferase (ALT/SGPT) 35, Alkaline Phosphatase 92, Total Protein 7.8, Albumin 4.6H, Serum Alcohol < 10 KATRIN HOWARD DO 03/21/19 1802: History of Present Illness History of Present Illness Reason for visit/HPI Surgery asked to admit secondary to closed head injury in pt on Xarelto. This is an ACS Trauma requirement. HPI per ED: To ER by private vehicle accompanied by his with reports of a fall. 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 He remembers everything that happened no loss of consciousness. He has pain and deformity to the right shoulder, bruising and pain to the left hand and some blood around the lips. He denies any abdominal pain, does complain of right-sided chest pain. Denies back pain or leg pain. Had a recent cardiac catheterization without intervention on 02/27/19. He is on xarelto for a-fib. Occurred: Just Prior to Arrival Severity: Moderate Pain/Injury Location: Chest, Face, Head, Upper Extremity Modifying Factors: No Movement Loss of Consciousness: No Loss of Consciousness Associated Symptoms (Fall): No Abdominal Pain; Chest Pain; No Confusion, No Dizziness, No Headache, No Neck Pain When I sas pt he had already had his right shoulder reduced and was feeling good from the conscious sedation. He denies headache, but he does have distracting injuries. Date Seen by a Provider: Mar 21, 2019 Time Seen by a Provider: 17:10 Allergies and Home Medications Allergies Coded Allergies: morphine (Verified Allergy, Unknown, 02/27/19) Home Medications Aspirin 81 Mg Tablet.dr, 81 MG PO DAILY Prescribed by: SANDRA LOPEZ on 02/28/19826 Atorvastatin Calcium 10 Mg Tablet, 10 MG PO HS Prescribed by: SANDRA LOPEZ on 02/28/19826 Glucosamine Sulfate 2Kcl 1,000 Mg Tablet, 1,000 MG PO DAILY, (Reported) Ibuprofen 200 Mg Tablet, 400 MG PO Q6H PRN for PAIN-MILD, (Reported) Metoprolol Succinate 25 Mg Tab.er.24h, 25 MG PO DAILY, (Reported) Multivit-Min/FA/Lycopene/Lut 1 Each Tablet, 1 EACH PO DAILY, (Reported) Ranitidine HCl 150 Mg Tablet, 150 MG PO DAILY PRN for HEARTBURN, (Reported) Patient Home Medication List Home Medication List Reviewed: Yes Past Gzplaih-Arwqxh-Lbduzq Hx Family Medical History Significant Family History: Other Conditions/Hx (Pt states he did not grow up with his parents, so has no idea on family hx.) Physical Exam Eyes: Bilateral Eye PERRL, Bilateral Eye EOMI HEENT: Other (pt has poor dentition, has small laceration on buccal mucosa on right side of lower mouth) Extremity: Other (R arm in a sling, L wrist splinted) Assessment/Plan Assessment/Plan Admission Diagonsis Closed Head Injury Abnormal Coagulation profile Atrial fibrillation Right shoulder dislocation Left radius fracture Admission Status: Observation Assessment/Plan Closed Head Injury Abnormal Coagulation profile Atrial fibrillation Right shoulder dislocation Left radius fracture Pt needs to be admitted for 24 hour observation; this is an ACS requirement for a closed head injury on blood thinners. Pt will be put on a diet, he will get neurochecks, IV fluids, pain control and anti-emetics as needed. Right shoulder/arm must remain in sling for a week and he will need an Ortho consult as an outpt for his shoulder and Left wrist. He had no other questions. Supervisory-Addendum Brief Verification & Attestation Participated in pt care: history, MDM, physical Personally performed: exam, history, MDM Care discussed with: Medical Student Procedures: n/a Verification and Attestation of Medical Student E/M Service A medical student performed and documented this service in my presence. I reviewed and verified all information documented by the medical student and made modifications to such information, when appropriate. I personally performed the physical exam and medical decision making. Katrin Howard, Mar 21, 2019,18:04 CLARICE FLOR MED STUDENT Mar 21, 2019 17:42 KATRIN BURGESS DO Mar 21, 2019 18:02 POS
[2019-03-21] MEDS ORDERED: ONDANSETRON 4 MG (ZOFRAN) ORAL DISSOLVE TAB PO PRN (17:45)
[2019-03-21 17:59] LABS: BACTERIA,URINE LARGE /HPF; SQUAMOUS EPITHELIAL CELL,UR RARE /HPF
[2019-03-21] MEDS: HYDROcodone/APAP 5 MG/325 MG (LORTAB) TAB PO PRN (20:39)
[2019-03-21] MEDS: LACTATED RINGERS 1,000 ML IV SCH (20:40)
[2019-03-21 22:54] VITALS: BP 136/88
[2019-03-22 00:11] VITALS: BP 117/75
[2019-03-22] MEDS: HYDROcodone/APAP 5 MG/325 MG (LORTAB) TAB PO PRN ×3 (00:38→08:27)
[2019-03-22 04:17] VITALS: BP 138/82
[2019-03-22] MEDS: LACTATED RINGERS 1,000 ML IV SCH ×2 (04:29→13:52)
[2019-03-22 07:28] LABS: BASOPHILS % (AUTO) 0 % (0-10); EOSINOPHILS # (AUTO) 0.1 10^3/uL (0.0-0.3); EOSINOPHILS % (AUTO) 1 % (0-10); HEMATOCRIT 35 % (40-54); HEMOGLOBIN 12.1 G/DL (13.3-17.7); LYMPHOCYTES # (AUTO) 1.8 X 10^3 (1.0-4.0); LYMPHOCYTES % (AUTO) 14 % (12-44); MEAN CORPUSCULAR HEMOGLOBIN 29 PG (25-34); MEAN CORPUSCULAR HGB CONC 34 G/DL (32-36); MEAN CORPUSCULAR VOLUME 85 FL (80-99); MEAN PLATELET VOLUME 8.6 FL (7.4-10.4); MONOCYTES % (AUTO) 8 % (0-12); NEUTROPHILS # (AUTO) 9.7 X 10^3 (1.8-7.8); NEUTROPHILS % (AUTO) 77 % (42-75); PLATELET COUNT 238 10^3/uL (130-400); RED CELL DISTRIBUTION WIDTH 13.4 % (10.0-14.5); WHITE BLOOD COUNT 12.6 10^3/uL (4.3-11.0)
[2019-03-22 07:53] LABS: ALANINE AMINOTRANSFERASE 24 U/L (0-55); ALBUMIN 3.8 GM/DL (3.2-4.5); ALKALINE PHOSPHATASE 79 U/L (40-136); BILIRUBIN,TOTAL 1.4 MG/DL (0.1-1.0); BUN/CREATININE RATIO 17; CALCIUM 8.7 MG/DL (8.5-10.1); CARBON DIOXIDE 23 MMOL/L (21-32); CHLORIDE 107 MMOL/L (98-107); GFR ESTIMATED > 60; GLUCOSE 99 MG/DL (70-105); POTASSIUM 4.1 MMOL/L (3.6-5.0); SODIUM 139 MMOL/L (135-145); TOTAL PROTEIN 6.3 GM/DL (6.4-8.2)
[2019-03-22 08:00] VITALS: BP 137/90
--- NOTE | 2019-03-22 09:11 | NUR ---
CM DISCHARGE PLANNING: Visited with patient et at bedside about voiced concerns regarding medical bills. The patient et his have voiced that if they leave before 24hrs then they will receive a large medical bill. This was explored et found that patient had a previous hospital stay and received a bill from that. We talked about deductibles and they were given information about our financial service representatives that would help them work through any medical bills that might come up. They voiced appreciation for information et are ready to discharge to home when feels he is medically ready. They denied any further needs or concerns at this time.
--- NOTE | 2019-03-22 09:37 | Progress Note - Surgery ---
Subjective Time Seen by a Provider: 09:13 Subjective/Events-last exam Pt seen and examined. He denied headache and states his shoulder is not bothering him; his wrist only hurts a little (he did get pain pill). When asked some Neuro questions he does not get everything correct; although his states his memory normally isn't that great and he forgets things. He knew where he was and the year, but couldn't tell me what day it was. Review of Systems General: No Chills, No Night Sweats HEENT: No Head Aches, No Visual Changes Pulmonary: No Dyspnea, No Cough Cardiovascular: Chest Pain (but was pointing to ribs); No: Palpitations Gastrointestinal: No: Nausea, Vomiting, Abdominal Pain Musculoskeletal: shoulder pain, arm pain (wrist) Objective Exam Vital Signs Date Time Temp Pulse Resp B/P (MAP) Pulse Ox O2 Delivery O2 Flow Rate FiO2 03/22/19 08:00 35.6 73 16 137/90 (106) 93 Room Air 03/22/19 08:00 97 Room Air 03/22/19 04:29 36.4 03/22/19 04:17 36.4 91 20 138/82 (100) 97 Room Air 03/22/19 00:11 36.4 77 20 117/75 (89) 96 Room Air 03/21/19 23:38 98 Room Air 3.00 03/21/19 22:54 37.0 91 18 136/88 98 Room Air 03/21/19 21:09 37.0 03/21/19 18:40 90 20 140/98 97 Room Air 03/21/19 17:30 91 19 156/98 98 Room Air 03/21/19 17:00 94 20 134/103 94 Room Air 03/21/19 16:55 98 25 132/95 93 Nasal Cannula 3.00 03/21/19 16:45 101 20 131/114 97 Nasal Cannula 3.00 03/21/19 16:40 118 39 168/98 92 Room Air 03/21/19 16:40 Nasal Cannula 2.00 03/21/19 15:18 36.4 90 22 130/87 (101) 95 Room Air I & O 03/22/19 07:00 Intake Total 2640 ml Output Total 800 ml Balance 1840 ml Capillary Refill : Less Than 3 SecondsLess Than 3 Seconds General Appearance: WD/WN, Anxious HEENT: Moist Mucous Membranes, Other (pt has poor dentition, has small laceration on buccal mucosa on right side of lower mouth) Respiratory: Lungs Clear, No Accessory Muscle Use, No Respiratory Distress Cardiovascular: Regular Rate, Rhythm, Normal Peripheral Pulses Gastrointestinal: non tender, soft Extremity: Pelvis Stable, Other (limited range of motion to the right arm due to shoulder pain) Neurologic/Psychiatric: Alert, Other (oriented mostly, not to day and couldn't remember why he was kept overnight) Skin: Normal Color, Warm/Dry Results Lab Laboratory Tests 03/21/19 15:20: White Blood Count 20.1H, Red Blood Count 4.91, Hemoglobin 14.1, Hematocrit 41, Mean Corpuscular Volume 84, Mean Corpuscular Hemoglobin 29, Mean Corpuscular Hemoglobin Concent 34, Red Cell Distribution Width 13.5, Platelet Count 350, Mean Platelet Volume 9.1, Sodium Level 141, Potassium Level 5.0, Chloride Level 106, Carbon Dioxide Level 23, Anion Gap 12, Blood Urea Nitrogen 23H, Creatinine 1.42H, Estimat Glomerular Filtration Rate 49, BUN/Creatinine Ratio 16, Glucose Level 160H, Calcium Level 9.5, Total Bilirubin 0.8, Direct Bilirubin 0.4H, Indirect Bilirubin 0.4, Aspartate Amino Transf (AST/SGOT) 32, Alanine Aminotransferase (ALT/SGPT) 35, Alkaline Phosphatase 92, Total Protein 7.8, Albumin 4.6H, Serum Alcohol < 10 03/21/19 17:33: Urine Color YELLOW, Urine Clarity CLEAR, Urine pH 6.0, Urine Specific [place] 1.015L, Urine Protein NEGATIVE, Urine Glucose (UA) NEGATIVE, Urine Ketones NEGATIVE, Urine Nitrite POSITIVE, Urine Bilirubin NEGATIVE, Urine Urobilinogen 0.2, Urine Leukocyte Esterase TRACE, Urine RBC (Auto) TRACE-I, Urine RBC 2-5H, Urine WBC 5-10H, Urine Squamous Epithelial Cells RARE, Urine Crystals NONE, Urine Bacteria LARGEH, Urine Casts NONE, Urine Mucus NEGATIVE, Urine Culture Indicated YES 03/22/19 07:20: White Blood Count 12.6H, Red Blood Count 4.18L, Hemoglobin 12.1L, Hematocrit 35L , Mean Corpuscular Volume 85, Mean Corpuscular Hemoglobin 29, Mean Corpuscular Hemoglobin Concent 34, Red Cell Distribution Width 13.4, Platelet Count 238, Mean Platelet Volume 8.6, Sodium Level 139, Potassium Level 4.1, Chloride Level 107, Carbon Dioxide Level 23, Anion Gap 9, Blood Urea Nitrogen 17, Creatinine 1.00, Estimat Glomerular Filtration Rate > 60, BUN/Creatinine Ratio 17, Glucose Level 99, Calcium Level 8.7, Total Bilirubin 1.4H, Aspartate Amino Transf (AST/SGOT) 21, Alanine Aminotransferase (ALT/SGPT) 24, Alkaline Phosphatase 79, Total Protein 6.3L, Albumin 3.8, Neutrophils (%) (Auto) 77H, Lymphocytes (%) (Auto) 14, Monocytes (%) (Auto) 8, Eosinophils (%) (Auto) 1, Basophils (%) (Auto) 0, Neutrophils # (Auto) 9.7H, Lymphocytes # (Auto) 1.8, Monocytes # (Auto) 1.0, Eosinophils # (Auto) 0.1, Basophils # (Auto) 0.0, Corrected Calcium 8.9 Assessment/Plan Assessment/Plan Assessment/Plan Closed Head Injury Abnormal Coagulation profile Atrial fibrillation Right shoulder dislocation Left radius fracture Pt neurochecks may not be totally reliable because he has poor memory already; however, to be safe I will order repeat CT of the head to make sure there is no delayed bleed. Will set him up with Ortho consult as an outpt for his shoulder and Left wrist. He and his had no other questions. Clinical Quality Measures DVT/VTE Risk/Contraindication: Risk Factor Score Per Nursin RFS Level Per Nursing on Admit: 4+=Very High KATRIN HOWARD DO Mar 22, 2019 09:36 POS
--- NOTE | 2019-03-22 09:40 | Discharge Inst-Surgical ---
Discharge Inst-Surgical Depart Medication/Instructions New, Converted or Re-Newed RX: Other (Use Ibuprofen or tylenol at home for pain) Patient Instructions Follow up Appt: My office will call Ortho to make appointment for 1 week. If you need to see me can call my office; [phone] Instructions: No lifting greater than 20 pounds. No strenuous activity. May shower in 24 hours, no tub bath or soaking. Use incentive spirometer at home as directed. No Smoking Symptoms to Report: Appetite Changes, Extremity Discoloration, Numbness/Tingling, Swelling Increased, Bleeding Excessive, Eyesight Changes, Pain Increased, Urine Color Change, Constipation(Persistent), Fever over 101 degree F, Pain/Pressure in chest, Urinating Difficulty, Cough Up/Vomit Blood, Heart Beat Irreg/Pounding, Pain/Pressure in jaw, Cramps in feet or legs, Lightheadedness, Pain/Pressure in shoulder, Diarrhea(Persistent), Memory Changes Suddenly, Questions/Concerns, Weight gain consecutive days, Dizziness/Fainting, Nausea/Vomiting, Shortness of Breath, Weight gain over 2 pounds If questions or concerns contact your physician Or seek help at emergency department. Activity Activity as Tolerated: Yes let right shoulder dangle and swing arm in small native daily, otherwise must keep in sling Driving Instructions: No Driving/Refer to Dr. Cunningham Discharge Diet: No Restrictions Diet After 24 Hours: Clear Liquid if Nauseous If Any Problems/Questions/Issu: Contact Your Physician, Go to Emergency Room Skin/Wound Care Infection Signs and Symptoms: Increased Swelling, Temperature Above 101 F Bathing Instructions: Shower (but keep left wrist and soft cast dry) KATRIN HOWARD DO Mar 22, 2019 09:40 POS
[2019-03-22 12:00] VITALS: BP 141/90
--- NOTE | 2019-03-22 14:48 | Diagnostic Imaging Report ---
PROCEDURE: CT head without contrast. TECHNIQUE: Multiple contiguous axial images were obtained through the brain without the use of intravenous contrast. Auto Exposure Controls were utilized during the CT exam to meet ALARA standards for radiation dose reduction. INDICATION: Fall. COMPARISON: Correlation is made with recent head CT from one day earlier. FINDINGS: Ventricles and sulci remain within normal limits. There is no sulcal effacement or midline shift. No acute intra-axial or extra-axial hemorrhage is detected. Cisterns are patent. Visualized paranasal sinuses are clear. IMPRESSION: Stable unremarkable noncontrast CT brain. No acute hemorrhage is detected. Dictated by: Dictated on workstation # [id number]
[2019-03-22 15:35] VITALS: BP 147/86
== END 2019-03-22 16:53 | disposition home or self-care (01) ==
LOC: EDUNIT# 15:11 → ER 15:13 → UNDOADMOB 18:29 → 4TH 18:29 → UNDODISOB 03-22 17:37
PROVIDERS: ADMIT Surgery; ATTEND Surgery
DX: S09.90XA Unspecified injury of head, initial encounter (principal); S43.004A Unspecified dislocation of right shoulder joint, initial encounter; S52.92XA Unspecified fracture of left forearm, initial encounter for closed fracture; I48.91 Unspecified atrial fibrillation
CPT/HCPCS: 36415; 70450; 71045; 71260; 72125; 73020; 73030; 73130; 74177; 80048; 80053; 80076; 80320; 81000; 85025; 85027; 86850; 86900; 86901; 87077; 87088; 87186; 93041; 96361; 96374; G0378

== ENCOUNTER → 2019-03-28 | Outpatient (CLI) | payer MEDICARE ==
--- NOTE | 2019-03-28 11:16 | Diagnostic Imaging Report ---
INDICATION: Distal left radius fracture, follow-up. TIME OF EXAM: 9:50 a.m. COMPARISON: Comparison is made with prior radiograph from 03/21/2019. FINDINGS: Multiple views of the left wrist were obtained. The impacted distal radius fracture with intra-articular extension is again noted. Overall alignment is near-anatomic. There is some sclerosis at the fracture site, although fracture line does remain partly visible. Ulnar styloid fracture is again seen. There is some questionable mild widening of the scapholunate space, and scapholunate dissociation cannot be entirely excluded. There are triscaphe and first CMC joint degenerative changes. Metacarpals are unremarkable. IMPRESSION: 1. Healing distal radius and ulnar styloid fractures, although fracture lines do remain partly visible. 2. Questionable mild widening of the scapholunate space which can be seen with scapholunate dissociation. 3. Carpal degenerative change. Dictated by: Dictated on workstation # [id number]
--- NOTE | 2019-03-28 11:22 | Diagnostic Imaging Report ---
INDICATION: Right shoulder dislocation, follow-up. TIME OF EXAM: 10:40 a.m. COMPARISON: Comparison is made with prior radiograph from 03/21/2019. FINDINGS: Glenohumeral and acromioclavicular alignment are normal. There is significant narrowing of the acromiohumeral space, consistent with chronic rotator cuff arthropathy. No definite fracture is seen. Well-corticated osseous density along the inferior aspect of the glenoid is noted which is likely chronic. IMPRESSION: Changes of chronic rotator cuff arthropathy. No acute fracture is detected. Dictated by: Dictated on workstation # [id number]
== END ==
LOC: ORTHO 08:40
PROVIDERS: ATTEND Orthopaedic Surgery
DX: S43.004D Unspecified dislocation of right shoulder joint, subsequent encounter (principal); M19.011 Primary osteoarthritis, right shoulder; S52.502D Unspecified fracture of the lower end of left radius, subsequent encounter for closed fracture with routine healing; S52.612D Displaced fracture of left ulna styloid process, subsequent encounter for closed fracture with routine healing; M19.032 Primary osteoarthritis, left wrist
CPT/HCPCS: 29075; 73030; 73110

== ENCOUNTER → 2019-04-08 | Outpatient (CLI) | payer MEDICARE, OTHER ==
--- NOTE | 2019-04-08 09:52 | Diagnostic Imaging Report ---
INDICATION: Follow-up wrist fracture. Time of exam: 9:43 AM Correlation is made with prior exam from 03/28/2019. Overlying cast material is now noted which does obscure bone detail. The fracture which does appear to be slightly impacted of the distal radius is again noted. Fracture line remains clearly visible. Overall alignment is near-anatomic. The ulnar styloid fracture is not as well-seen on today's study. There are some degenerative changes at the radiocarpal joint as well as the triscaphe and 1st CMC joints. Carpal bones do appear to be intact without fracture. Visualized metacarpals are unremarkable. IMPRESSION: Interval placement of fiberglass cast material transfixing the distal radius and ulnar fractures. Overall alignment is anatomic. Fracture line involving the distal radius remains clearly visible. Dictated by: Dictated on workstation # [id number]
== END ==
LOC: ORTHO 09:27
PROVIDERS: ATTEND Orthopaedic Surgery
DX: S52.512D Displaced fracture of left radial styloid process, subsequent encounter for closed fracture with routine healing (principal); Z98.890 Other specified postprocedural states
CPT/HCPCS: 73100

== ENCOUNTER → 2019-04-29 | Outpatient (CLI) | payer MEDICARE, OTHER ==
--- NOTE | 2019-04-29 10:09 | Diagnostic Imaging Report ---
INDICATION: Follow-up left wrist fracture. TIME OF EXAM: 9:42 a.m. COMPARISON: Correlation is made with prior study 04/08/2019. FINDINGS: Impacted comminuted fracture of the distal radius with intra-articular extension is again noted. There is some sclerosis at the fracture site consistent with some healing. Fracture lines do remain partly visible. Overall alignment is near-anatomic. Fracture noted through the ulnar styloid is also clearly visible. Scapholunate space appears to be similar to prior exam. Degenerative changes at the first CMC joint are noted. IMPRESSION: Healing distal radius fracture although fracture lines remain clearly visible. Dictated by: Dictated on workstation # [id number]
--- NOTE | 2019-04-29 10:12 | Diagnostic Imaging Report ---
EXAMINATION: Right shoulder radiographs, 3 views. COMPARISON: March 28, 2019. HISTORY: 73-year-old male, history of right shoulder dislocation. Right shoulder pain. FINDINGS: The humeral head does not appear to be anteriorly or posteriorly dislocated. The humeral head is superiorly subluxed. There is no identified acute fracture. The acromioclavicular joint is normally aligned. There are no prominent acromioclavicular degenerative changes. There is chondrocalcinosis. There is a nodule projecting over the right lower lobe measuring up to 1.8 cm in size. Correlating with prior CT chest imaging of March 21, 2019, there is a correlate right lower lobe pulmonary nodule with internal fat attenuation consistent with a benign hamartoma. IMPRESSION: 1. The right humeral head is superiorly subluxed and may relate to a chronic full-thickness rotator cuff tendon tear. 2. Humeral head is not currently anteriorly or posteriorly dislocated. 3. No identified fracture. 4. Intact acromioclavicular joint. 5. 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 Dictated by: Dictated on workstation # [id number]
== END ==
LOC: ORTHO 09:17
PROVIDERS: ATTEND Orthopaedic Surgery
DX: S43.014A Anterior dislocation of right humerus, initial encounter (principal); S52.512D Displaced fracture of left radial styloid process, subsequent encounter for closed fracture with routine healing; R91.1 Solitary pulmonary nodule
CPT/HCPCS: 73030; 73110

== ENCOUNTER → 2019-06-12 | Day surgery (SDC) | payer MEDICARE ==
[~2019-06-12] VITALS: Ht 167.7 cm; Wt 81.0 kg
[2019-06-12] VITALS (8 sets, daily range): BP systolic 109–161; BP diastolic 78–108
[~2019-06-12] MED LIST changes: -IBUP-2055 PO; +IBUP-2473 PO; +LIDOCAINE 2% VISCOUS 15 ML UDC ONE; +LIDOCAINE 2% VISCOUS 15 ML UDC PO ONE; -METO-387 PO; +MIDAZOLAM 2 MG/2 ML (VERSED) VIAL ONE; +MTP25TSR PO; +NS IV 1000 ML 1,000 ML IV SCH; +NS IV 1000 ML 1,000 ML ONE; +RIVA20TA PO; +SAW160CA3 PO; +proPOfol 200 MG/20 ML (DIPRIVAN) VIAL IV ONE
[2019-06-12 09:59] LABS: HEMOGLOBIN 14.3 G/DL (13.3-17.7); MEAN PLATELET VOLUME 9.2 FL (7.4-10.4); RED CELL DISTRIBUTION WIDTH 14.2 % (10.0-14.5); WHITE BLOOD COUNT 7.9 10^3/uL (4.3-11.0)
[2019-06-12 10:14] LABS: INR 1.1 (0.8-1.4); PROTHROMBIN TIME PATIENT 14.6 SEC (12.2-14.7)
[2019-06-12 10:21] LABS: ALANINE AMINOTRANSFERASE 25 U/L (0-55); ALBUMIN 4.2 GM/DL (3.2-4.5); ALKALINE PHOSPHATASE 96 U/L (40-136); BILIRUBIN,TOTAL 1.1 MG/DL (0.1-1.0); BUN/CREATININE RATIO 15; CARBON DIOXIDE 26 MMOL/L (21-32); CHLORIDE 108 MMOL/L (98-107); CHOLESTEROL 138 MG/DL (< 200); CREATININE SERUM 1.09 MG/DL (0.60-1.30); GFR ESTIMATED > 60; GLUCOSE 94 MG/DL (70-105); HDL CHOLESTEROL 54 MG/DL (40-60); POTASSIUM 4.2 MMOL/L (3.6-5.0); SODIUM 140 MMOL/L (135-145); TOTAL PROTEIN 7.1 GM/DL (6.4-8.2); TRIGLYCERIDES 72 MG/DL (<150); VLDL CHOLESTEROL 14 MG/DL (5-40)
--- NOTE | 2019-06-12 10:23 | Diagnostic Imaging Report ---
EXAMINATION: Chest 1 view HISTORY: Atrial fibrillation COMPARISON: 03/21/2019 FINDINGS: The lungs are clear without edema or pneumonia. No pleural effusion or pneumothorax. Heart size is normal. Right lower lobe nodule is unchanged, previously shown to be a hamartoma on CT. IMPRESSION: 1. Clear lungs. Dictated by: Dictated on workstation # [id number]
--- NOTE | 2019-06-12 10:26 | NUR ---
SPOKE WITH THE PT (HE HAD HIS MED BOTTLES) AND CALLED [facility] TO COMPLETE THE MED REC. PT WAS ABLE TO TELL ME HOW/WHEN HE TAKES EACH MED. THE DATES ON THE BOTTLES ARE OLD, HOWEVER HIS SAYS THEY POUR NEW/OLD BOTTLES TOGETHER ( HER WORD WERE "THEY THEM TOGETHER") XARELTO AND ATORVASTATIN: THE BOTTLES ON BOTH THESE SAY TO TAKE HS, HOWEVER THE PT HAS BEEN TAKING THEM IN THE MORNING WITH ALL THE OTHER MEDICATIONS ( PT SAYS HE TAKES THEM IN THE MORNING BC HE WILL BE UP AND AWAKE FOR A LONG PERIOD OF TIME THAT HE THINKS THEY WILL WORK BETTER) I ADVISED HIM TO CHECK WITH THE DR AND THAT THERE MAY BE A REASON THAT DR WANTS THEM TAKEN AT THAT TIME. THE FOLLOWING ARE FILL DATES FROM [facility]: 05-23-2019 XARELTO 20MG #30/30DS 05-23-2019 METOPROLOL SUCC 25MG #30/30DS 05-23-2019 ATORVASTATIN 10MG #30/30DS 05-27-2019 LISINOPRIL 20MG #90/90DS OTC MEDS: MARÍA DORSEY IBUPROFEN
--- NOTE | 2019-06-12 11:06 | Cardiac Procedure Note-CS/ASA ---
Pre-Procedure Note Pre-Op Procedure Note H&P Reviewed The H&P was reviewed, patient examined and no changes noted. Date H&P Reviewed: Jun 12, 2019 Time H&P Reviewed: 10:00 Conscious Sedation Pre-Proced Time 10:00 ASA Score 3 For ASA 3 and 4: Consider anesthesia and medical clearance. Also, for patients with a history of failed moderate sedation consider anesthesia. Airway Lungs Heart ASA score ASA 1: a normal healthy patient ASA 2: a patient with a mild systemic disease (mid diabetes, controlled hypertension, obesity x ASA 3: a patient with a severe systemic disease that limits activity (angina, COPD, prior Myocardial infarction) ASA 4: a patient with an incapacitating disease that is a constant threat to life (CHF, renal failure) ASA 5: a moribund patient not expected to survive 24 hrs. (ruptured aneurysm) ASA 6: a declared brain- patient whose organs are being harvested. For emergent operations, add the letter E after the classification Mallampati Classification Grade 3 Sedation Plan Analgesia, Amnesia, Plan communicated to team members, Discussed options with patient/fam, Discussed risks with patient/fam The patient is an appropriate candidate to undergo the planned procedure, sedation, and anesthesia. The patient immediately re-assessed prior to indication. SANDRA LOPEZ MD Jun 12, 2019 11:06
--- NOTE | 2019-06-12 11:07 | Clinic Account Progress/Dx ---
Clinic Account Progress/Dx DIAGNOSIS: Date Seen by Provider: Jun 12, 2019 Time Seen by Provider: 11:06 Atrial fibrillation Hypertension Hyperlipidemia SANDRA LOPEZ MD Jun 12, 2019 11:07
== END ==
LOC: CATH 07:10
PROVIDERS: ATTEND Internal Medicine Cardiovascular Disease
DX: I48.0 Paroxysmal atrial fibrillation (principal); I34.0 Nonrheumatic mitral (valve) insufficiency; I25.10 Atherosclerotic heart disease of native coronary artery without angina pectoris; I10 Essential (primary) hypertension; R94.39 Abnormal result of other cardiovascular function study; Z79.01 Long term (current) use of anticoagulants; Z87.891 Personal history of nicotine dependence; Z88.5 Allergy status to narcotic agent
CPT/HCPCS: 36415; 71045; 80053; 80061; 85027; 85610; 85730; 87081; 93005; 93312; 93320; 93325

== ENCOUNTER → 2019-11-06 | Outpatient (CLI) | payer MEDICARE ==
[~2019-11-06] MED LIST changes: +AMIO200T4 PO; +ASPI-983 PO; -LIDOCAINE 2% VISCOUS 15 ML UDC ONE; -LIDOCAINE 2% VISCOUS 15 ML UDC PO ONE; -MIDAZOLAM 2 MG/2 ML (VERSED) VIAL ONE; -NS IV 1000 ML 1,000 ML IV SCH; -NS IV 1000 ML 1,000 ML ONE; +SAW1CAPS8 PO; -proPOfol 200 MG/20 ML (DIPRIVAN) VIAL IV ONE
== END ==
LOC: LABNPT 07:09
PROVIDERS: ATTEND Internal Medicine Cardiovascular Disease
DX: Z01.818 Encounter for other preprocedural examination (principal); Z20.828 Contact with and (suspected) exposure to other viral communicable diseases

== ENCOUNTER → 2019-11-11 | Outpatient (CLI) | payer MEDICARE | LOC: LABNPT 07:03 | PROVIDERS: ATTEND Internal Medicine Cardiovascular Disease | DX: Z01.812 Encounter for preprocedural laboratory examination (principal) ==

== ENCOUNTER 2019-11-13 07:10 | Day surgery (SDC) | payer MEDICARE ==
[2019-11-13] VITALS (11 sets, daily range): BP systolic 83–158; BP diastolic 55–105
[~2019-11-13] VITALS: Ht 170 cm; Wt 81.0 kg
[~2019-11-13 07:10] MED LIST changes: -AMIO200T4 PO; -ASPI-983 PO; -SAW1CAPS8 PO
[2019-11-13] MEDS ORDERED: LIDOCAINE 2% VISCOUS 15 ML UDC ONE (07:17)
[2019-11-13] MEDS ORDERED: NS IV 1000 ML 1,000 ML ONE (07:17)
[2019-11-13] MEDS ORDERED: NS IV 1000 ML 1,000 ML IV SCH (07:23)
[2019-11-13] MEDS ORDERED: NS IV 1000 ML 1,000 ML IV ONE (07:23)
--- OUTSIDE RECORDS SUMMARY | 2019-11-13 07:29 | XMS REPORT | Continuity of Care Document ---
Author Organization Unknown Address Unknown Phone Unavailable Allergies Active Description Code Type Severity Reaction Onset Reported/Identified Relationship to Patient Clinical Status Yes No Known Drug Allergies [id number] Drug Allergy Unknown N/A 02/06/2019 Yes morphine [id number] Drug Allergy Unknown N/A 02/27/2019 Medications There is no data. 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 19 OTHER PERSISTENT ATRIAL FIBRILLATION 02/28/2019 SANDRA LOPEZ MD Ot E78. 5 HYPERLIPIDEMIA, UNSPECIFIED 02/28/2019 SANDRA LOPEZ MD Ot I10 ESSENTIAL (PRIMARY) HYPERTENSION 02/28/2019 SANDRA LOPEZ MD Ot I25. 10 ATHSCL HEART DISEASE OF [place] CORONARY 02/28/2019 SANDRA LOPEZ MD Ot I48. 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 5 ALLERGY STATUS TO NARCOTIC AGENT STATUS 03/04/2019 SANDRA LOPEZ MD Ot E78. 5 HYPERLIPIDEMIA, UNSPECIFIED 03/04/2019 SANDRA LOPEZ MD Ot I10 ESSENTIAL (PRIMARY) HYPERTENSION 03/04/2019 SANDRA LOPEZ MD Ot I25. 10 ATHSCL HEART DISEASE OF [place] CORONARY 03/04/2019 SANDRA LOPEZ MD Ot I48. 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 5 ALLERGY STATUS TO NARCOTIC AGENT STATUS 03/11/2019 SANDRA LOPEZ MD Ot E78. 5 HYPERLIPIDEMIA, UNSPECIFIED 03/11/2019 SANDRA LOPEZ MD Ot I10 ESSENTIAL (PRIMARY) HYPERTENSION 03/11/2019 SANDRA LOPEZ MD Ot I25. 10 ATHSCL HEART DISEASE OF [place] CORONARY 03/11/2019 SANDRA LOPEZ MD Ot I48. 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 5 ALLERGY STATUS TO NARCOTIC AGENT STATUS 03/22/2019 LEE PARSONS, KATRIN B Ot I48.9 1 UNSPECIFIED ATRIAL FIBRILLATION 03/22/2019 LEE PARSONS, KATRIN B Ot S09.90XA UNSPECIFIED INJURY OF HEAD, INITIAL ENCO 03/22/2019 LEE PARSONS, KATRIN B Ot S43.004A UNSPECIFIED DISLOCATION OF RIGHT SHOULDE 03/22/2019 LEE PARSONS, KATRIN B Ot S52.92XA UNSP FRACTURE OF LEFT FOREARM, INIT FOR 03/22/2019 LEE PARSONS, KATRIN B Ot I48.9 1 UNSPECIFIED ATRIAL FIBRILLATION 03/22/2019 LEE PARSONS, KATRIN B Ot S09.90XA UNSPECIFIED INJURY OF HEAD, INITIAL ENCO 03/22/2019 LEE PARSONS KATRIN B Ot S43.004A UNSPECIFIED DISLOCATION OF RIGHT SHOULDE 03/22/2019 LEE PARSONS, KATRIN B Ot S52.92XA UNSP FRACTURE OF LEFT FOREARM, INIT FOR 04/01/2019 EPI VINCENT MD Ot M19.011 PRIMARY OSTEOARTHRITIS, RIGHT SHOULDER 04/01/2019 EPI VINCENT MD Ot M19.032 PRIMARY OSTEOARTHRITIS, LEFT WRIST 04/01/2019 EPI VINCENT MD Ot S43.004D UNSPECIFIED DISLOCATION OF RIGHT SHOULDE 04/01/2019 EPI VINCENT MD Ot S52.502D UNSP FX THE LOW END LEFT RAD, SUBS FOR C 04/01/2019 EPI VINCENT MD Ot S52.612D DISP FX OF L ULNA STYLOID PRO, SUBS FOR 04/03/2019 EPI VINCENT MD Ot M19.011 PRIMARY OSTEOARTHRITIS, RIGHT SHOULDER 04/03/2019 EPI VINCENT MD Ot M19.032 PRIMARY OSTEOARTHRITIS, LEFT WRIST 04/03/2019 EPI VINCENT MD Ot S43.004D UNSPECIFIED DISLOCATION OF RIGHT SHOULDE 04/03/2019 EPI VINCENT MD Ot S52.502D UNSP FX THE LOW END LEFT RAD, SUBS FOR C 04/03/2019 EPI VINCENT MD Ot S52.612D DISP FX OF L ULNA STYLOID PRO, SUBS FOR 04/10/2019 EPI VINCENT MD Ot S52.512D DISP FX OF L RADIAL STYLOID PRO, 7THD 04/10/2019 EPI VINCENT MD Ot Z98.890 OTHER SPECIFIED POSTPROCEDURAL STATES 04/29/2019 EDINSON FARNSWORTH MD Ot I08.1 RHEUMATIC DISORDERS OF BOTH MITRAL AND T 04/29/2019 EDINSON FARNSWORTH MD Ot I48.91 UNSPECIFIED ATRIAL FIBRILLATION 04/29/2019 SANDRA LOPEZ MD Ot I10 ESSENTIAL (PRIMARY) HYPERTENSION 04/29/2019 SANDRA LOPEZ MD Ot 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 19 OTHER PERSISTENT ATRIAL FIBRILLATION 04/29/2019 EPI VINCENT MD Ot M19.011 PRIMARY OSTEOARTHRITIS, RIGHT SHOULDER 04/29/2019 EPI VINCENT MD Ot M19.032 PRIMARY OSTEOARTHRITIS, LEFT WRIST 04/29/2019 EPI VINCENT MD Ot S43.004D UNSPECIFIED DISLOCATION OF RIGHT SHOULDE 04/29/2019 EPI VINCENT MD Ot S52.502D UNSP FX THE LOW END LEFT RAD, SUBS FOR C 04/29/2019 EPI VINCENT MD Ot S52.612D DISP FX OF L ULNA STYLOID PRO, SUBS FOR 04/29/2019 EPI VINCENT MD Ot S52.512D DISP FX OF L RADIAL STYLOID PRO, 7THD 04/29/2019 EPI VINCENT MD Ot Z98.890 OTHER SPECIFIED POSTPROCEDURAL STATES 04/29/2019 EPI VINCENT MD Ot M19.011 PRIMARY OSTEOARTHRITIS, RIGHT SHOULDER 04/29/2019 EPI VINCENT MD Ot M19.032 PRIMARY OSTEOARTHRITIS, LEFT WRIST 04/29/2019 EPI VINCENT MD Ot S43.004D UNSPECIFIED DISLOCATION OF RIGHT SHOULDE 04/29/2019 EPI VINCENT MD Ot S52.502D UNSP FX THE LOW END LEFT RAD, SUBS FOR C 04/29/2019 EPI VINCENT MD Ot S52.612D DISP FX OF L ULNA STYLOID PRO, SUBS FOR 04/29/2019 EDINSON FARNSWORTH MD Ot I08.1 RHEUMATIC DISORDERS OF BOTH MITRAL AND T 04/29/2019 EDINSON FARNSWORTH MD Ot I48.91 UNSPECIFIED ATRIAL FIBRILLATION 04/29/2019 SANDRA LOPEZ MD Ot I10 ESSENTIAL (PRIMARY) HYPERTENSION 04/29/2019 SANDRA LOPEZ MD Ot 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 19 OTHER PERSISTENT ATRIAL FIBRILLATION 05/22/2019 EPI VINCENT MD Ot M19.011 PRIMARY OSTEOARTHRITIS, RIGHT SHOULDER 05/22/2019 EPI VINCENT MD Ot M19.032 PRIMARY OSTEOARTHRITIS, LEFT WRIST 05/22/2019 EPI VINCENT MD Ot S43.004D UNSPECIFIED DISLOCATION OF RIGHT SHOULDE 05/22/2019 EPI VINCENT MD Ot S52.502D UNSP FX THE LOW END LEFT RAD, SUBS FOR C 05/22/2019 EPI VINCENT MD Ot S52.612D DISP FX OF L ULNA STYLOID PRO, SUBS FOR 05/22/2019 EPI VINCENT MD Ot S52.512D DISP FX OF L RADIAL STYLOID PRO, 7THD 05/22/2019 EPI VINCENT MD Ot Z98.890 OTHER SPECIFIED POSTPROCEDURAL STATES 05/22/2019 EPI VINCENT MD Ot R91. 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 19 OTHER PERSISTENT ATRIAL FIBRILLATION 05/22/2019 EDINSON FARNSWORTH MD Ot I08.1 RHEUMATIC DISORDERS OF BOTH MITRAL AND T 05/22/2019 EDINSON FARNSWORTH MD Ot I48.91 UNSPECIFIED ATRIAL FIBRILLATION 05/28/2019 EPI VINCENT MD Ot R91. 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 19 OTHER PERSISTENT ATRIAL FIBRILLATION 06/11/2019 EPI VINCENT MD Ot M19.011 PRIMARY OSTEOARTHRITIS, RIGHT SHOULDER 06/11/2019 EPI VINCENT MD Ot M19.032 PRIMARY OSTEOARTHRITIS, LEFT WRIST 06/11/2019 EPI VINCENT MD Ot S43.004D UNSPECIFIED DISLOCATION OF RIGHT SHOULDE 06/11/2019 EPI VINCENT MD Ot S52.502D UNSP FX THE LOW END LEFT RAD, SUBS FOR C 06/11/2019 EPI VINCENT MD Ot S52.612D DISP FX OF L ULNA STYLOID PRO, SUBS FOR 06/11/2019 EPI VINCENT MD Ot S52.512D DISP FX OF L RADIAL STYLOID PRO, 7THD 06/11/2019 EPI VINCENT MD Ot Z98.890 OTHER SPECIFIED POSTPROCEDURAL STATES 06/11/2019 EPI VINCENT MD Ot R91. 1 SOLITARY PULMONARY NODULE 06/11/2019 EPI VINCENT MD Ot S43.014A ANTERIOR DISLOCATION OF RIGHT HUMERUS, I 06/11/2019 EPI VINCENT MD Ot S52.512D DISP FX OF L RADIAL STYLOID PRO, 7THD 06/14/2019 SANDRA LOPEZ MD Ot I10 ESSENTIAL (PRIMARY) HYPERTENSION 06/14/2019 SANDRA LOPEZ MD Ot I25. 10 ATHSCL HEART DISEASE OF [place] CORONARY 06/14/2019 SANDRA LOPEZ MD Ot I34. 0 NONRHEUMATIC MITRAL (VALVE) INSUFFICIENC 06/14/2019 SANDRA LOPEZ MD Ot I48. 0 PAROXYSMAL ATRIAL FIBRILLATION 06/14/2019 SANDRA LOPEZ MD Ot R94. 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 5 ALLERGY STATUS TO NARCOTIC AGENT STATUS 06/17/2019 SANDRA LOPEZ MD Ot I10 ESSENTIAL (PRIMARY) HYPERTENSION 06/17/2019 SANDRA LOPEZ MD Ot I25. 10 ATHSCL HEART DISEASE OF [place] CORONARY 06/17/2019 SANDRA LOPEZ MD Ot I34. 0 NONRHEUMATIC MITRAL (VALVE) INSUFFICIENC 06/17/2019 SANDRA LOPEZ MD Ot I48. 0 PAROXYSMAL ATRIAL FIBRILLATION 06/17/2019 SANDRA LOPEZ MD Ot R94. 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 5 ALLERGY STATUS TO NARCOTIC AGENT STATUS 06/19/2019 SANDRA LOPEZ MD Ot I10 ESSENTIAL (PRIMARY) HYPERTENSION 06/19/2019 SANDRA LOPEZ MD Ot I25. 10 ATHSCL HEART DISEASE OF [place] CORONARY 06/19/2019 SANDRA LOPEZ MD Ot I34. 0 NONRHEUMATIC MITRAL (VALVE) INSUFFICIENC 06/19/2019 SANDRA LOPEZ MD Ot I48. 0 PAROXYSMAL ATRIAL FIBRILLATION 06/19/2019 SANDRA LOPEZ MD Ot R94. 39 ABNORMAL RESULT OF OTHER CARDIOVASCULAR 06/19/2019 SANDRA LOPEZ MD Ot Z79. 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 5 ALLERGY STATUS TO NARCOTIC AGENT STATUS 06/19/2019 EPI VINCENT MD Ot R91. 1 SOLITARY PULMONARY NODULE 06/19/2019 EPI VINCENT MD Ot S43.014A ANTERIOR DISLOCATION OF RIGHT HUMERUS, I 06/19/2019 EPI VINCENT MD Ot S52.512D DISP FX OF L RADIAL STYLOID PRO, 7THD 06/25/2019 SANDRA LOPEZ MD Ot I10 ESSENTIAL (PRIMARY) HYPERTENSION 06/25/2019 SANDRA LOPEZ MD Ot I25. 10 ATHSCL HEART DISEASE OF [place] CORONARY 06/25/2019 SANDRA LOPEZ MD Ot I34. 0 NONRHEUMATIC MITRAL (VALVE) INSUFFICIENC 06/25/2019 SANDRA LOPEZ MD Ot I48. 0 PAROXYSMAL ATRIAL FIBRILLATION 06/25/2019 SANDRA LOPEZ MD Ot R94. 39 ABNORMAL RESULT OF OTHER CARDIOVASCULAR 06/25/2019 SANDRA LOPEZ MD Ot Z79. 01 LONGTERM (CURRENT) USE OF ANTICOAGULANT 06/25/2019 SANDRA LOPEZ MD Ot Z87.891 PERSONAL HISTORY OF NICOTINE DEPENDENCE 06/25/2019 SANDRA LOPEZ MD Ot Z88. 5 ALLERGY STATUS TO NARCOTIC AGENT STATUS 07/17/2019 SANDRA LOPEZ MD Ot I10 ESSENTIAL (PRIMARY) HYPERTENSION 07/17/2019 SANDRA LOPEZ MD, Ot I25. 10 ATHSCL HEART DISEASE OF [place] CORONARY 07/17/2019 SANDRA LOPEZ MD, Ot I34. 0 NONRHEUMATIC MITRAL (VALVE) INSUFFICIENC 07/17/2019 SANDRA LOPEZ MD, Ot I48. 0 PAROXYSMAL ATRIAL FIBRILLATION 07/17/2019 SANDRA LOPEZ MD, Ot R94. 39 ABNORMAL RESULT OF OTHER CARDIOVASCULAR 07/17/2019 SANDRA LOPEZ MD, Ot Z79. 01 LONGTERM (CURRENT) USE OF ANTICOAGULANT 07/17/2019 SANDRA LOPEZ MD, Ot Z87.891 PERSONAL HISTORY OF NICOTINE DEPENDENCE 07/17/2019 SANDRA LOPEZ MD, Ot Z88. 5 ALLERGY STATUS TO NARCOTIC AGENT STATUS Procedures There is no data. Results Test Result Range LIPID PANEL - 12/29/18 07:59 CHOLESTEROL, TOTAL 163 mg/dL <200 HDL CHOLESTEROL 60 mg/dL >40 TRIGLYCERIDES 66 mg/dL <150 LDL-CHOLESTEROL 88 mg/dL (calc) NRG CHOL/HDLC RATIO 2.7 (calc) <5.0 NON HDL CHOLESTEROL 103 mg/dL (calc) <13 0 MAGNESIUM SERUM - 12/29/18 07:59 MAGNESIUM 2.1 mg/dL 1.5-2.5 Complete urinalysis with reflex to cultu re - 02/27/19 09:36 Urine color determination YELLOW NRG Urine clarity determination CLEAR NR G Urine pH measurement by test strip 5 5-9 Specific gravity of urine by test strip 1.020 1.016-1.022 Urine protein assay by test strip, semi-quantitative 1+ NEGATIVE Urine glucose detection by automated test strip NE GATIVE NEGATIVE Erythrocytes detection in urine sediment by light micr oscopy 1+ NEGATIVE Urine ketones detection by automated test strip NE GATIVE NEGATIVE Urine nitrite detection by test strip POSITIVE NEGATIVE Urine total bilirubin detection by test strip NEGA TIVE NEGATIVE Urine urobilinogen measurement by automated test strip (mass/volume) NORMAL NORMAL Urine leukocyte esterase detection by dipstick 2+ NEGATIVE Automated urine sediment erythrocyte cou nt by microscopy (number/high power field) [HPF] NRG Automated urine sediment leukocyte count by microscopy (number/high power field) [HPF] NRG Bacteria detection in urine sediment by light microsco py LARGE NRG Squamous epithelial cells detection in u rine sediment by light microscopy NONE NRG Crystals detection in urine sediment by light microsco py NONE NRG Casts detection in urine sediment by light microscopy NONE NRG Mucus detection in urine sediment by light microscopy NEGATIVE NRG Complete urinalysis with reflex to culture YES NRG Bacterial urine culture - 02/27/19 09:36 Bacterial urine culture [id number] NRG COLONY COUNT 90,000 CFU/ML NRG FTX;REPORTABLE MULTI-DRUG RESISTANT ORANISM NRG FREE TEXT ENTRY 2 CONTACT PRECAUTIONS N RG FREE TEXT ENTRY 3 SUSCEPTIBILITY REPORTED [id number] NRG Methicillin resistant Staphylococcus aur eus (MRSA) screening culture - 02/27/19 09:36 Methicillin resistant Staphylococcus aureus (MRSA) scr eening culture NEG NRG Dirithromycin susceptibility test by dis k diffusion - 02/27/19 09:36 Gentamicin susceptibility test by minimum inhibitory c oncentration <= NRG Trimethoprim/sulfamethoxazole susceptibi lity test by minimum inhibitoryconcentration > NRG Levofloxacin susceptibility test by minimum inhibitory concentration 4 NRG Ampicillin susceptibility test by minimum inhibitory c oncentration > NRG Cefazolin susceptibility test by minimum inhibitory co ncentration 8 NRG Ceftriaxone susceptibility test by minimum inhibitory concentration <= NRG Ciprofloxacin susceptibility test by minimum inhibitor y concentration > NRG Meropenem susceptibility test by minimum inhibitory co ncentration <= NRG Nitrofurantoin susceptibility test by mi nimum inhibitory concentration 32 NRG Amoxicillin and clavulanate potassium susc JAYDON = NRG Dirithromycin susceptibility test by dis k diffusion - 02/27/19 09:36 Gentamicin susceptibility test by minimum inhibitory c oncentration <= NRG Trimethoprim/sulfamethoxazole susceptibi lity test by minimum inhibitoryconcentration > NRG Levofloxacin susceptibility test by minimum inhibitory concentration > NRG Ampicillin susceptibility test by minimum inhibitory c oncentration > NRG Cefazolin susceptibility test by minimum inhibitory co ncentration 8 NRG Ceftriaxone susceptibility test by minimum inhibitory concentration <= NRG Ciprofloxacin susceptibility test by minimum inhibitor y concentration > NRG Meropenem susceptibility test by minimum inhibitory co ncentration <= NRG Nitrofurantoin susceptibility test by mi nimum inhibitory concentration <= NRG Amoxicillin and clavulanate potassium susc JAYDON = NRG PT panel in platelet poor plasma by coag ulation assay - 02/27/19 09:57 Prothrombin time (PT) in platelet poor plasma by coagu lation assay 13.3 s 12.2-14.7 INR in platelet poor plasma or blood by coagulation as say 1.0 0.8-1.4 Activated partial thromboplastin time (a PTT) in platelet poor plasma bycoagulation assay - 02/27/19 09:57 Activated partial thromboplastin time (a PTT) in platelet poor plasma bycoagulation assay 30 s 24-35 Comprehensive metabolic panel - 02/27/19 09:57 Serum or plasma sodium measurement (moles/volume) 141 mmol/L 135-145 Serum or plasma potassium measurement (moles/volume) 3.8 mmol/L 3.6-5.0 Serum or plasma chloride measurement (moles/volume) 107 mmol/L 98-107 Carbon dioxide 26 mmol/L 21-32 Serum or plasma anion gap determination (moles/volume) 8 mmol/L 5-14 Serum or plasma urea nitrogen measurement (mass/volume ) 21 mg/dL 7-18 Serum or plasma creatinine measurement (mass/volume) 1.13 mg/dL 0.60-1.30 Serum or plasma urea nitrogen/creatinine mass ratio 19 NRG Serum or plasma creatinine measurement w ith calculation of estimated glomerular filtration rate > NRG Serum or plasma glucose measurement (mass/volume) 95 mg/dL 70-105 Serum or plasma calcium measurement (mass/volume) 9.0 mg/dL 8.5-10.1 Serum or plasma total bilirubin measurement (mass/volu me) 1.0 mg/dL 0.1-1.0 Serum or plasma alkaline phosphatase jean carlos surement (enzymatic activity/volume) 96 U/L 40-136 Serum or plasma aspartate aminotransfera se measurement (enzymatic activity/volume) 16 U/L 5-34 Serum or plasma alanine aminotransferase measurement (enzymatic activity/volume) 23 U/L 0-55 Serum or plasma protein measurement (mass/volume) 7.6 g/dL 6.4-8.2 Serum or plasma albumin measurement (mass/volume) 4.4 g/dL 3.2-4.5 CALCIUM CORRECTED 8.7 mg/dL 8.5-10.1 Lipid 1996 panel - 02/27/19 09:57 Serum or plasma triglyceride measurement (mass/volume) 101 mg/dL <150 Serum or plasma cholesterol measurement (mass/volume) 188 mg/dL < 200 Serum or plasma cholesterol in HDL measurement (mass/v olume) 57 mg/dL 40-60 Cholesterol in LDL [mass/volume] in serum or plasma by direct assay 114 mg/dL 1-129 Serum or plasma cholesterol in VLDL measurement (mass/ volume) 20 mg/dL 5-40 Automated blood complete blood count (he mogram) panel - 03/21/19 15:20 Blood leukocytes automated count (number/volume) 20.1 10*3/uL 4.3-11.0 Blood erythrocytes automated count (number/volume) 4.91 10*6/uL 4.35-5.85 Venous blood hemoglobin measurement (mass/volume) 14.1 g/dL 13.3-17.7 Blood hematocrit (volume fraction) 41 % 40-54 Automated erythrocyte mean corpuscular volume 84 [ foz_us] 80-99 Automated erythrocyte mean corpuscular h emoglobin (mass per erythrocyte) 29 pg 25-34 Automated erythrocyte mean corpuscular h emoglobin concentration measurement (mass/volume) 34 g/dL 32-36 Automated erythrocyte distribution width ratio 13. 5 % 10.0- 14.5 Automated blood platelet count (count/volume) 350 10*3/uL 130-400 Automated blood platelet mean volume measurement 9.1 [foz_us] 7.4-10.4 Liver function panel (serum or plasma al k phos, alb, total and direct bili, total protein, ALT, AST) - 03/21/19 15:20 Serum or plasma total bilirubin measurement (mass/volu me) 0.8 mg/dL 0.1-1.0 Serum or plasma alkaline phosphatase jean carlos surement (enzymatic activity/volume) 92 U/L 40-136 Serum or plasma aspartate aminotransfera se measurement (enzymatic activity/volume) 32 U/L 5-34 Serum or plasma alanine aminotransferase measurement (enzymatic activity/volume) 35 U/L 0-55 Serum or plasma protein measurement (mass/volume) 7.8 g/dL 6.4-8.2 Serum or plasma albumin measurement (mass/volume) 4.6 g/dL 3.2-4.5 Bilirubin direct 0.4 mg/dL 0.0-0.3 Serum or plasma indirect bilirubin measurement (mass/v olume) 0.4 mg/dL NRG Whole blood basic metabolic panel - 03/08 08/24 15:20 Serum or plasma sodium measurement (moles/volume) 141 mmol/L 135-145 Serum or plasma potassium measurement (moles/volume) 5.0 mmol/L 3.6-5.0 Serum or plasma chloride measurement (moles/volume) 106 mmol/L 98-107 Carbon dioxide 23 mmol/L 21-32 Serum or plasma anion gap determination (moles/volume) 12 mmol/L 5-14 Serum or plasma urea nitrogen measurement (mass/volume ) 23 mg/dL 7-18 Serum or plasma creatinine measurement (mass/volume) 1.42 mg/dL 0.60-1.30 Serum or plasma urea nitrogen/creatinine mass ratio 16 NRG Serum or plasma creatinine measurement w ith calculation of estimated glomerular filtration rate 49 NRG Serum or plasma glucose measurement (mass/volume) 160 mg/dL 70-105 Serum or plasma calcium measurement (mass/volume) 9.5 mg/dL 8.5-10.1 Serum or plasma ethanol measurement (mas s/volume) - 03/21/19 15:20 Serum or plasma ethanol measurement (mass/volume) < mg/dL <10 Blood type T Indirect antibody screen pa fermín - 03/21/19 15:20 WRISTBAND NUMBER [id number] NRG ABO+Rh group BN NRG Blood group antibody screen NEGATIVE NR G Complete urinalysis with reflex to cultu re - 03/21/19 17:33 Urine color determination YELLOW NRG Urine clarity determination CLEAR NR G Urine pH measurement by test strip 6.0 5-9 Specific gravity of urine by test strip 1.015 1.016-1.022 Urine protein assay by test strip, semi-quantitative NEGATIVE NEGATIVE Urine glucose detection by automated test strip NE GATIVE NEGATIVE Erythrocytes detection in urine sediment by light micr oscopy TRACE-I NEGATIVE Urine ketones detection by automated test strip NE GATIVE NEGATIVE Urine nitrite detection by test strip POSITIVE NEGATIVE Urine total bilirubin detection by test strip NEGA TIVE NEGATIVE Urine urobilinogen measurement by automated test strip (mass/volume) 0.2 mg/dL < = 1.0 Urine leukocyte esterase detection by dipstick TRA CE NEGATIVE Automated urine sediment erythrocyte cou nt by microscopy (number/high power field) [HPF] NRG Automated urine sediment leukocyte count by microscopy (number/high power field) [HPF] NRG Bacteria detection in urine sediment by light microsco py LARGE NRG Squamous epithelial cells detection in u rine sediment by light microscopy RARE NRG Crystals detection in urine sediment by light microsco py NONE NRG Casts detection in urine sediment by light microscopy NONE NRG Mucus detection in urine sediment by light microscopy NEGATIVE NRG Complete urinalysis with reflex to culture YES NRG Bacterial urine culture - 03/21/19 17:33 Bacterial urine culture [id number] NRG COLONY COUNT 80,000 CFU/ML NRG FTX;REPORTABLE SUSCEPTIBILITY REPORTED 03/25 13:20 NRG Dirithromycin susceptibility test by dis k diffusion - 03/21/19 17:33 Gentamicin susceptibility test by minimum inhibitory c oncentration <= NRG Trimethoprim/sulfamethoxazole susceptibi lity test by minimum inhibitoryconcentration > NRG Levofloxacin susceptibility test by minimum inhibitory concentration 4 NRG Ampicillin susceptibility test by minimum inhibitory c oncentration > NRG Cefazolin susceptibility test by minimum inhibitory co ncentration 4 NRG Ceftriaxone susceptibility test by minimum inhibitory concentration <= NRG Ciprofloxacin susceptibility test by minimum inhibitor y concentration > NRG Meropenem susceptibility test by minimum inhibitory co ncentration <= NRG Nitrofurantoin susceptibility test by mi nimum inhibitory concentration 32 NRG Amoxicillin and clavulanate potassium susc JAYDON = NRG Dirithromycin susceptibility test by dis k diffusion - 03/21/19 17:33 Gentamicin susceptibility test by minimum inhibitory c oncentration <= NRG Trimethoprim/sulfamethoxazole susceptibi lity test by minimum inhibitoryconcentration > NRG Levofloxacin susceptibility test by minimum inhibitory concentration > NRG Ampicillin susceptibility test by minimum inhibitory c oncentration > NRG Cefazolin susceptibility test by minimum inhibitory co ncentration 4 NRG Ceftriaxone susceptibility test by minimum inhibitory concentration <= NRG Ciprofloxacin susceptibility test by minimum inhibitor y concentration > NRG Meropenem susceptibility test by minimum inhibitory co ncentration <= NRG Nitrofurantoin susceptibility test by mi nimum inhibitory concentration <= NRG Amoxicillin and clavulanate potassium susc JAYDON = NRG Complete blood count (CBC) with automate d white blood cell (WBC) differential - 03/22/19 07:20 Blood leukocytes automated count (number/volume) 12.6 10*3/uL 4.3-11.0 Blood erythrocytes automated count (number/volume) 4.18 10*6/uL 4.35-5.85 Venous blood hemoglobin measurement (mass/volume) 12.1 g/dL 13.3-17.7 Blood hematocrit (volume fraction) 35 % 40-54 Automated erythrocyte mean corpuscular volume 85 [ foz_us] 80-99 Automated erythrocyte mean corpuscular h emoglobin (mass per erythrocyte) 29 pg 25-34 Automated erythrocyte mean corpuscular h emoglobin concentration measurement (mass/volume) 34 g/dL 32-36 Automated erythrocyte distribution width ratio 13. 4 % 10.0- 14.5 Automated blood platelet count (count/volume) 238 10*3/uL 130-400 Automated blood platelet mean volume measurement 8.6 [foz_us] 7.4-10.4 Automated blood neutrophils/100 leukocytes 77 % 42-75 Automated blood lymphocytes/100 leukocytes 14 % 12-44 Blood monocytes/100 leukocytes 8 % 0-12 Automated blood eosinophils/100 leukocytes 1 % 0-10 Automated blood basophils/100 leukocytes 0 % 0-10 Blood neutrophils automated count (number/volume) 9.7 10*3 1.8-7.8 Blood lymphocytes automated count (number/volume) 1.8 10*3 1.0-4.0 Blood monocytes automated count (number/volume) 1. 0 10*3 0.0-1.0 Automated eosinophil count 0.1 10*3/uL 0 .0-0.3 Automated blood basophil count (count/volume) 0.0 10*3/uL 0.0-0.1 Comprehensive metabolic panel - 03/22/19 07:20 Serum or plasma sodium measurement (moles/volume) 139 mmol/L 135-145 Serum or plasma potassium measurement (moles/volume) 4.1 mmol/L 3.6-5.0 Serum or plasma chloride measurement (moles/volume) 107 mmol/L 98-107 Carbon dioxide 23 mmol/L 21-32 Serum or plasma anion gap determination (moles/volume) 9 mmol/L 5-14 Serum or plasma urea nitrogen measurement (mass/volume ) 17 mg/dL 7-18 Serum or plasma creatinine measurement (mass/volume) 1.00 mg/dL 0.60-1.30 Serum or plasma urea nitrogen/creatinine mass ratio 17 NRG Serum or plasma creatinine measurement w ith calculation of estimated glomerular filtration rate > NRG Serum or plasma glucose measurement (mass/volume) 99 mg/dL 70-105 Serum or plasma calcium measurement (mass/volume) 8.7 mg/dL 8.5-10.1 Serum or plasma total bilirubin measurement (mass/volu me) 1.4 mg/dL 0.1-1.0 Serum or plasma alkaline phosphatase jean carlos surement (enzymatic activity/volume) 79 U/L 40-136 Serum or plasma aspartate aminotransfera se measurement (enzymatic activity/volume) 21 U/L 5-34 Serum or plasma alanine aminotransferase measurement (enzymatic activity/volume) 24 U/L 0-55 Serum or plasma protein measurement (mass/volume) 6.3 g/dL 6.4-8.2 Serum or plasma albumin measurement (mass/volume) 3.8 g/dL 3.2-4.5 CALCIUM CORRECTED 8.9 mg/dL 8.5-10.1 Automated blood complete blood count (he mogram) panel - 06/12/19 09:45 Blood leukocytes automated count (number/volume) 7.9 10*3/uL 4.3-11.0 Blood erythrocytes automated count (number/volume) 5.10 10*6/uL 4.35-5.85 Venous blood hemoglobin measurement (mass/volume) 14.3 g/dL 13.3-17.7 Blood hematocrit (volume fraction) 42 % 40-54 Automated erythrocyte mean corpuscular volume 82 [ foz_us] 80-99 Automated erythrocyte mean corpuscular h emoglobin (mass per erythrocyte) 28 pg 25-34 Automated erythrocyte mean corpuscular h emoglobin concentration measurement (mass/volume) 34 g/dL 32-36 Automated erythrocyte distribution width ratio 14. 2 % 10.0- 14.5 Automated blood platelet count (count/volume) 212 10*3/uL 130-400 Automated blood platelet mean volume measurement 9.2 [foz_us] 7.4-10.4 PT panel in platelet poor plasma by coag ulation assay - 06/12/19 09:45 Prothrombin time (PT) in platelet poor plasma by coagu lation assay 14.6 s 12.2-14.7 INR in platelet poor plasma or blood by coagulation as say 1.1 0.8-1.4 Activated partial thromboplastin time (a PTT) in platelet poor plasma bycoagulation assay - 06/12/19 09:45 Activated partial thromboplastin time (a PTT) in platelet poor plasma bycoagulation assay 32 s 24-35 Comprehensive metabolic panel - 06/12/19 09:45 Serum or plasma sodium measurement (moles/volume) 140 mmol/L 135-145 Serum or plasma potassium measurement (moles/volume) 4.2 mmol/L 3.6-5.0 Serum or plasma chloride measurement (moles/volume) 108 mmol/L 98-107 Carbon dioxide 26 mmol/L 21-32 Serum or plasma anion gap determination (moles/volume) 6 mmol/L 5-14 Serum or plasma urea nitrogen measurement (mass/volume ) 16 mg/dL 7-18 Serum or plasma creatinine measurement (mass/volume) 1.09 mg/dL 0.60-1.30 Serum or plasma urea nitrogen/creatinine mass ratio 15 NRG Serum or plasma creatinine measurement w ith calculation of estimated glomerular filtration rate > NRG Serum or plasma glucose measurement (mass/volume) 94 mg/dL 70-105 Serum or plasma calcium measurement (mass/volume) 9.0 mg/dL 8.5-10.1 Serum or plasma total bilirubin measurement (mass/volu me) 1.1 mg/dL 0.1-1.0 Serum or plasma alkaline phosphatase jean carlos surement (enzymatic activity/volume) 96 U/L 40-136 Serum or plasma aspartate aminotransfera se measurement (enzymatic activity/volume) 20 U/L 5-34 Serum or plasma alanine aminotransferase measurement (enzymatic activity/volume) 25 U/L 0-55 Serum or plasma protein measurement (mass/volume) 7.1 g/dL 6.4-8.2 Serum or plasma albumin measurement (mass/volume) 4.2 g/dL 3.2-4.5 CALCIUM CORRECTED 8.8 mg/dL 8.5-10.1 Lipid 1996 panel - 06/12/19 09:45 Serum or plasma triglyceride measurement (mass/volume) 72 mg/dL <150 Serum or plasma cholesterol measurement (mass/volume) 138 mg/dL < 200 Serum or plasma cholesterol in HDL measurement (mass/v olume) 54 mg/dL 40-60 Cholesterol in LDL [mass/volume] in serum or plasma by direct assay 65 mg/dL 1-129 Serum or plasma cholesterol in VLDL measurement (mass/ volume) 14 mg/dL 5-40 Methicillin resistant Staphylococcus aur eus (MRSA) screening culture - 06/12/19 09:45 Methicillin resistant Staphylococcus aureus (MRSA) scr eening culture NEG [facility] LIPID PANEL - 07/11/19 10:28 CHOLESTEROL, TOTAL 151 mg/dL <200 HDL CHOLESTEROL 60 mg/dL > OR = 40 TRIGLYCERIDES 66 mg/dL <150 LDL-CHOLESTEROL 76 mg/dL (calc) NRG CHOL/HDLC RATIO 2.5 (calc) <5.0 NON HDL CHOLESTEROL 91 mg/dL (calc) <130 CMP - 07/11/19 10:28 GLUCOSE 65 mg/dL 65-139 UREA NITROGEN (BUN) 20 mg/dL 7-25 CREATININE 1.06 mg/dL 0.70-1.18 eGFR NON-AFR. PERUVIAN 70 mL/min/1.73m2 > OR = 60 eGFR 81 mL/min/1.73m2 > OR = 60 BUN/CREATININE RATIO NOT APPLICABLE (calc) 6-22 SODIUM 141 mmol/L 135-146 POTASSIUM 4.4 mmol/L 3.5-5.3 CHLORIDE 105 mmol/L 98-110 CARBON DIOXIDE 28 mmol/L 20-32 CALCIUM 9.0 mg/dL 8.6-10.3 PROTEIN, TOTAL 6.7 g/dL 6.1-8.1 ALBUMIN 4.3 g/dL 3.6-5.1 GLOBULIN 2.4 g/dL (calc) 1.9-3.7 ALBUMIN/GLOBULIN RATIO 1.8 (calc) 1.0-2. 5 BILIRUBIN, TOTAL 0.9 mg/dL 0.2-1.2 ALKALINE PHOSPHATASE 88 U/L 35-144 AST 18 U/L 10-35 ALT 20 U/L 9-46 CBC - 07/11/19 10:28 WHITE BLOOD CELL COUNT 6.5 Thousand/uL 3 .8-10.8 RED BLOOD CELL COUNT 5.35 Million/uL 4.2 0-5.80 HEMOGLOBIN 15.0 g/dL 13.2-17.1 HEMATOCRIT 44.8 % 38.5-50.0 MCV 83.7 fL 80.0-100.0 MCH 28.0 pg 27.0-33.0 MCHC 33.5 g/dL 32.0-36.0 RDW 14.2 % 11.0-15.0 PLATELET COUNT 234 Thousand/uL 140-400 MPV 9.9 fL 7.5-12.5 ABSOLUTE NEUTROPHILS 4056 cells/uL 1500- 7800 ABSOLUTE LYMPHOCYTES 1638 cells/uL 850-3 900 ABSOLUTE MONOCYTES 611 cells/uL 200-950 ABSOLUTE EOSINOPHILS 163 cells/uL 15-500 ABSOLUTE BASOPHILS 33 cells/uL 0-200 NEUTROPHILS 62.4 % NRG LYMPHOCYTES 25.2 % NRG MONOCYTES 9.4 % NRG EOSINOPHILS 2.5 % NRG BASOPHILS 0.5 % NRG Coronavirus SARS-CoV-2 SO 2018 0 07:45 Coronavirus Ab [Units/volume] in Serum Negative Negative Encounters ACCT No. Visit Date/Time Discharge Status Pt. Type Provider Facility Loc./Unit Complaint [id number] 10/24/2019 10:00:00 10/24/2019 23:59: 59 CLS Outpatient EDINSON FARNSWORTH [facility] [id number] 07/11/2019 09:00:00 Document Registration [id number] 12/29/2018 07:30:00 Document Registration [id number] 11/06/2019 07:09:00 23:59:59 CLS Outpatient SANDRA LOPEZ MD [facility] LABNPT [id number] 06/12/2019 10:30:00 23:59:59 CLS Outpatient SANDRA LOPEZ MD [facility] AFIB [id number] 04/29/2019 09:17:00 23:59:59 CLS Outpatient EPI VINCENT MD [facility] ORTHO [id number] 04/08/2019 09:27:00 23:59:59 CLS Outpatient EPI VINCENT MD [facility] ORTHO [id number] 03/28/2019 08:40:00 23:59:59 CLS Outpatient EPI VINCENT MD [facility] ORTHO [id number] 03/21/2019 18:29:00 17:37:00 DIS Inpatient KATRIN HOWARD DO [facility] 4TH CLOSED HEAD INJ ON ANTI COAGULANTS [id number] 02/27/2019 08:29:00 10:10:00 DIS Outpatient SANDRA LOPEZ MD [facility] ABN STRESS TEST [id number] 02/06/2019 13:40:00 10/02/2 019 23:59:59 CLS Outpatient DAJA LUTHER, EDINSON De León [facility] CARD AFIB [id number] 02/06/2019 11:36:00 23:59:59 CLS Outpatient SANDRA LOPEZ MD [facility] CARD ATRIAL FIBRILLATION,HTN [id number] 11/13/2019 09:30:00 P EN Preadmit SANDRA LOPEZ MD [facility] AFIB [id number] 11/11/2019 07:03:[address] Outpatient SANDRA LOPEZ MD [facility] LABT
[2019-11-13] MEDS ORDERED: LIDOCAINE 2% VISCOUS 15 ML UDC PO ONE (07:30)
[2019-11-13 07:41] LABS: HEMOGLOBIN 13.7 G/DL (13.3-17.7); MEAN PLATELET VOLUME 9.4 FL (7.4-10.4); RED CELL DISTRIBUTION WIDTH 13.4 % (10.0-14.5); WHITE BLOOD COUNT 6.5 10^3/uL (4.3-11.0)
--- NOTE | 2019-11-13 07:51 | Diagnostic Imaging Report ---
INDICATION: AFIB COMPARISON: 06/12/2019 FINDINGS: Single frontal view of the chest demonstrates normal heart size and pulmonary vascularity. The lungs are well aerated and clear. No large pleural effusion or pneumothorax is seen. The visualized osseous structures show no acute abnormalities. Benign calcified granuloma on the right is noted. IMPRESSION: 1. No acute cardiopulmonary process. Dictated by: Dictated on workstation # [id number]
[2019-11-13 07:52] LABS: INR 1.2 (0.8-1.4); PROTHROMBIN TIME PATIENT 15.1 SEC (12.2-14.7)
[2019-11-13 07:59] LABS: ALBUMIN 4.1 GM/DL (3.2-4.5); BILIRUBIN,TOTAL 1.1 MG/DL (0.1-1.0); CALCIUM 8.9 MG/DL (8.5-10.1); CREATININE SERUM 1.22 MG/DL (0.60-1.30); POTASSIUM 4.2 MMOL/L (3.6-5.0); TOTAL PROTEIN 7.1 GM/DL (6.4-8.2)
[2019-11-13] MEDS ORDERED: ASPI-983 PO (08:05)
[2019-11-13] MEDS ORDERED: SAW1CAPS8 PO (08:05)
[2019-11-13] MEDS ORDERED: MIDAZOLAM 2 MG/2 ML (VERSED) VIAL ONE (08:09)
[2019-11-13] MEDS ORDERED: proPOfol 200 MG/20 ML (DIPRIVAN) VIAL IV ONE (08:09)
--- NOTE | 2019-11-13 08:20 | Cardiac Procedure Note-CS/ASA ---
Pre-Procedure Note Pre-Op Procedure Note H&P Reviewed The H&P was reviewed, patient examined and no changes noted. Date H&P Reviewed: Nov 13, 2019 Time H&P Reviewed: 08:20 Conscious Sedation Pre-Proced Time 08:20 ASA Score 3 For ASA 3 and 4: Consider anesthesia and medical clearance. Also, for patients with a history of failed moderate sedation consider anesthesia. Airway Lungs Heart ASA score ASA 1: a normal healthy patient ASA 2: a patient with a mild systemic disease (mid diabetes, controlled hypertension, obesity x ASA 3: a patient with a severe systemic disease that limits activity (angina, COPD, prior Myocardial infarction) ASA 4: a patient with an incapacitating disease that is a constant threat to life (CHF, renal failure) ASA 5: a moribund patient not expected to survive 24 hrs. (ruptured aneurysm) ASA 6: a declared brain- patient whose organs are being harvested. For emergent operations, add the letter E after the classification Mallampati Classification Grade 3 Sedation Plan Analgesia, Amnesia, Plan communicated to team members, Discussed options with patient/fam, Discussed risks with patient/fam The patient is an appropriate candidate to undergo the planned procedure, sedation, and anesthesia. The patient immediately re-assessed prior to indication. SANDRA LOPEZ MD Nov 13, 2019 08:20
--- NOTE | 2019-11-13 09:20 | NUR ---
NEURO CHECK DONE AND ALL WITHIN NORMAL LIMITS.
--- NOTE | 2019-11-13 09:20 | Cardioversion ---
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 Electrical cardioversion was carried out with anesthesia support with propofol. 120 joules of synchronized shock was delivered through external patches which promptly restored sinus rhythm. The patient tolerated the procedure well. Conclusions: Successful electrical cardioversion with no complication Final Diagnosis: Paroxysmal atrial fibrillation Palpitation Hypertension Hyperlipidemia SANDRA RUSSO MD Nov 13, 2019 09:20
[2019-11-13] MEDS ORDERED: AMIO200T4 PO (09:27)
--- NOTE | 2019-11-13 09:28 | Discharge Inst-Post CATH ---
Discharge Inst-CATH/EP Problems Reviewed?: Yes Post Cardiac Cath/EP D/C Inst Follow Up/Plan Appointment with Dr. Russo's office in 2-4 weeks <b>CARDIAC CATH/EP PROCEDURE DISCHARGE INSTRUCTIONS</b> ACTIVITY * Go Home directly and rest. * Limit activity of the leg (or wrist if it was used) for 7 days including aerobics, swimming, jogging, bicycling, etc. * Restrict stair-climbing for 7 days if possible, if not, climb up with your non-cath leg, then bring together on the same step. * Avoid lifting, pushing, pulling or excessive movement of the affected extremity for 7 days. * Customary sexual activity may be resumed after 2 days-use caution not to use a position that strains or causes pain to the affected extremity. * No driving for 24 hours. * NO SMOKING. * Avoid straining for bowel movements for 7 days. * Gentle walking on level ground is allowed. * Returning to work will depend on the type of procedure and the results. Your doctor will discuss this with you. CALL YOUR DOCTOR FOR ANY OF THE FOLLOWING: *If bleeding from the puncture site occurs- Apply gentle pressure to site with clean cloth and call your doctor or EMS. * If a knot or lump forms under the skin, increases in size, or causes pain. * If bruising appears to be worsening or moving further down your leg instead of disappearing. * Temperature above 101 F. CARE OF YOUR GROIN INCISION; * Bruising or purple discoloration of the skin near the puncture site is common. * You may shower only, no bathtub bathing for 5 days. Be careful to avoid slipping as your leg may feel stiff. * If a closure device was used on your femoral artery, please see the attached guide regarding care of the device and your leg. * Leave dressing on FOR 24 hours. CARE OF YOUR WRIST INCISION; * Bruising or purple discoloration of the skin near the puncture site is common. * You may shower. * DO NOT submerge wrist. * Leave dressing on FOR 24 hours. SANDRA RUSSO MD Nov 13, 2019 09:27
[2019-11-13] MEDS ORDERED: AMIODARONE FOR BOLUS 150 MG in D5W 100 ML IVPB 100 ML IV ONE (09:30)
--- NOTE | 2019-11-13 09:35 | NUR ---
DR. LOPEZ AT BEDSIDE.
--- NOTE | 2019-11-13 10:02 | NUR ---
SPOKE WITH THE PT (HE HAD HIS MED BOTTLES WITH HIM) TO COMPLETE THE MED REC THE FOLLOWING ARE FILL DATES: 08-16-2019 LISINOPRIL 20MG #90/90DS 08-17-2019 ATORVASTATIN 10MG #90/90DS 10-14-2019 XARELTO 20MG #90/90DS 10-14-2019 METOPROLOL SUCC 25MG #90/90DS OTC MEDS: [facility] BOWMAN ASPIRIN 82
--- NOTE | 2019-11-13 10:25 | NUR ---
PATIENT STATED HE HAS HOME MEDICATIONS AND WILL BE TAKING MEDICATIONS HIMSELF.
--- NOTE | 2019-11-13 10:54 | NUR ---
DR. LOPEZ PHONED AND REPORTED INTIAL STRIP SHOWED AFIB AND HAS BEEN IN/OUT AFIB COUPLE TIMES. DR. LOPEZ GAVE TELEPHONE ORDER FOR AMIODARONE 400MG PO AND INFORMED HE TOLD PATIENT HE WOULD BE IN AND OUT OF AFIB.
[2019-11-13] MEDS ORDERED: AMIODARONE 200 MG (CORDARONE) TAB PO ONE (11:00)
[2019-11-14] MEDS ORDERED: ZINC PICOLI PO SCH (09:00)
[2019-11-14] MEDS ORDERED: SAW PALMETTO FRUIT PO SCH (09:00)
[2019-11-14] MEDS ORDERED: RIVAROXABAN 20 MG TABLET (XARELTO) PO SCH (09:00)
[2019-11-14] MEDS ORDERED: NON-FORMULARY MEDICATION 1 EA EA (Multivit-Min/FA/Lycopene/Lut (Centrum Silver Tablet) 1 E PO SCH (09:00)
[2019-11-14] MEDS ORDERED: lisINopril 20 MG (PRINIVIL) TABLET PO SCH (09:00)
[2019-11-14] MEDS ORDERED: [UNRECOGNIZED DRUG - OTHER] PO SCH (09:00)
[2019-11-14] MEDS ORDERED: ASPIRIN E.C. 81 MG (ECOTRIN) TAB PO SCH (09:00)
== END 2019-11-13 11:40 | disposition home or self-care (01) ==
LOC: CATH 07:10 → SDC 09:55 → CATH 11:40
PROVIDERS: ATTEND Internal Medicine Cardiovascular Disease
DX: I48.0 Paroxysmal atrial fibrillation (principal); I25.10 Atherosclerotic heart disease of native coronary artery without angina pectoris; I11.9 Hypertensive heart disease without heart failure; I34.0 Nonrheumatic mitral (valve) insufficiency; E78.5 Hyperlipidemia, unspecified; R94.39 Abnormal result of other cardiovascular function study; M79.669 Pain in unspecified lower leg; I65.29 Occlusion and stenosis of unspecified carotid artery; Z79.82 Long term (current) use of aspirin; Z79.899 Other long term (current) drug therapy; Z87.891 Personal history of nicotine dependence; Z85.51 Personal history of malignant neoplasm of bladder
CPT/HCPCS: 36415; 71045; 80053; 80061; 85027; 85610; 85730; 87081; 92960; 93005; 93312; 93320; 93325

== ENCOUNTER 2019-12-11 08:39 | Day surgery (SDC) | payer MEDICARE ==
[~2019-12-11] VITALS: Ht 170 cm; Wt 178.0 kg
[~2019-12-11 08:39] MED LIST changes: +AMIO200T4 PO; +ASPI-983 PO; +SAW1CAPS8 PO
[2019-12-11] MEDS ORDERED: LIDOCAINE 1% INJ 20 ML 20 ML VIAL ONE (08:41)
--- OUTSIDE RECORDS SUMMARY | 2019-12-11 08:43 | XMS REPORT | Continuity of Care Document ---
Author Organization Unknown Address Unknown Phone Unavailable Allergies Active Description Code Type Severity Reaction Onset Reported/Identified Relationship to Patient Clinical Status Yes No Known Drug Allergies [id number] Drug Allergy Unknown N/A 02/06/2019 Yes morphine [id number] Drug Allergy Unknown N/A 02/27/2019 Medications There [...] Ot I25. 10 ATHSCL HEART DISEASE OF [place] CORONARY 02/28/2019 SANDRA LOPEZ MD Ot I48. 91 UNSPECIFIED ATRIAL FIBRILLATION 02/28/2019 SANDRA LOPEZ MD Ot Z79. 82 ALF (CURRENT) USE OF ASPIRIN 02/28/2019 SANDRA LOPEZ MD Ot Z79.899 OTHER ALF (CURRENT) DRUG THERAPY 02/28/2019 SANDRA LOPEZ MD Ot Z87.891 PERSONAL HISTORY OF NICOTINE DEPENDENCE 02/28/2019 SANDRA LOPEZ MD Ot Z88. 5 ALLERGY STATUS TO NARCOTIC AGENT STATUS 03/04/2019 SANDRA LOPEZ MD Ot E78. 5 HYPERLIPIDEMIA, UNSPECIFIED 03/04/2019 SANDRA LOPEZ MD Ot I10 ESSENTIAL (PRIMARY) HYPERTENSION 03/04/2019 SANDRA LOPEZ MD Ot I25. 10 ATHSCL HEART DISEASE OF [place] CORONARY 03/04/2019 SANDRA LOPEZ MD Ot I48. 91 UNSPECIFIED ATRIAL FIBRILLATION 03/04/2019 SANDRA LOPEZ MD Ot Z79. 82 ALF (CURRENT) USE OF ASPIRIN 03/04/2019 SANDRA LOPEZ MD Ot Z79.899 OTHER STAFFING COORDINATOR (CURRENT) DRUG THERAPY 03/04/2019 SANDRA LOPEZ MD Ot Z87.891 PERSONAL HISTORY OF NICOTINE DEPENDENCE 03/04/2019 SANDRA LOPEZ MD Ot Z88. 5 ALLERGY STATUS TO NARCOTIC AGENT STATUS 03/11/2019 SANDRA LOPEZ MD Ot E78. 5 HYPERLIPIDEMIA, UNSPECIFIED 03/11/2019 SANDRA LOPEZ MD Ot I10 ESSENTIAL (PRIMARY) HYPERTENSION 03/11/2019 SANDRA LOPEZ MD Ot I25. 10 ATHSCL HEART DISEASE OF [place] CORONARY 03/11/2019 SANDRA LOPEZ MD Ot I48. 91 UNSPECIFIED ATRIAL FIBRILLATION 03/11/2019 SANDRA LOPEZ MD Ot Z79. 82 STAFFING COORDINATOR (CURRENT) USE OF ASPIRIN 03/11/2019 SANDRA LOPEZ MD Ot Z79.899 OTHER STAFFING COORDINATOR (CURRENT) DRUG THERAPY 03/11/2019 SANDRA LOPEZ MD [...] OF CHRONIC ISCHEMIC HEART DI 06/11/2019 SANDRA LOPEZ MD Ot I48. 19 OTHER [...] Ot I25. 10 ATHSCL HEART DISEASE OF [place] CORONARY 06/14/2019 SANDRA LOPEZ MD Ot I34. 0 NONRHEUMATIC MITRAL (VALVE) INSUFFICIENC 06/14/2019 SANDRA LOPEZ MD Ot I48. 0 PAROXYSMAL ATRIAL FIBRILLATION 06/14/2019 SANDRA LOPEZ MD Ot R94. 39 ABNORMAL RESULT OF OTHER CARDIOVASCULAR 06/14/2019 SANDRA LOPEZ MD Ot Z79. 01 ALF (CURRENT) USE OF ANTICOAGULANT 06/14/2019 SANDRA LOPEZ MD Ot Z87.891 PERSONAL HISTORY OF NICOTINE DEPENDENCE 06/14/2019 SANDRA LOPEZ MD Ot Z88. 5 ALLERGY STATUS TO NARCOTIC AGENT STATUS 06/17/2019 SANDRA LOPEZ MD Ot I10 ESSENTIAL (PRIMARY) HYPERTENSION 06/17/2019 SANDRA LOPEZ MD Ot I25. 10 ATHSCL HEART DISEASE OF [place] CORONARY 06/17/2019 SANDRA LOPEZ MD Ot I34. 0 NONRHEUMATIC MITRAL (VALVE) INSUFFICIENC 06/17/2019 SANDRA LOPEZ MD Ot I48. 0 PAROXYSMAL ATRIAL FIBRILLATION 06/17/2019 SANDRA LOPEZ MD Ot R94. 39 ABNORMAL RESULT OF OTHER CARDIOVASCULAR 06/17/2019 SANDRA LOPEZ MD Ot Z79. 01 STAFFING COORDINATOR (CURRENT) USE OF ANTICOAGULANT 06/17/2019 SANDRA LOPEZ MD Ot Z87.891 PERSONAL HISTORY OF NICOTINE DEPENDENCE 06/17/2019 SANDRA LOPEZ MD Ot Z88. 5 ALLERGY STATUS TO NARCOTIC AGENT STATUS 06/19/2019 SANDRA LOPEZ MD Ot I10 ESSENTIAL (PRIMARY) HYPERTENSION 06/19/2019 SANDRA LOPEZ MD Ot I25. 10 ATHSCL HEART DISEASE OF [place] CORONARY 06/19/2019 SANDRA LOPEZ MD Ot I34. 0 NONRHEUMATIC MITRAL (VALVE) INSUFFICIENC 06/19/2019 SANDRA LOPEZ MD Ot I48. 0 PAROXYSMAL ATRIAL FIBRILLATION 06/19/2019 SANDRA LOPEZ MD Ot R94. 39 ABNORMAL RESULT OF OTHER CARDIOVASCULAR 06/19/2019 SANDRA LOPEZ MD Ot Z79. 01 STAFFING COORDINATOR (CURRENT) USE OF ANTICOAGULANT 06/19/2019 SANDRA LOPEZ [...] Ot I25. 10 ATHSCL HEART DISEASE OF [place] CORONARY 06/25/2019 SANDRA LOPEZ MD Ot I34. 0 NONRHEUMATIC MITRAL (VALVE) INSUFFICIENC 06/25/2019 SANDRA LOPEZ MD Ot I48. 0 PAROXYSMAL ATRIAL FIBRILLATION 06/25/2019 SANDRA LOPEZ MD Ot R94. 39 ABNORMAL RESULT OF OTHER CARDIOVASCULAR 06/25/2019 SANDRA LOPEZ MD Ot Z79. 01 STAFFING COORDINATOR (CURRENT) USE OF ANTICOAGULANT 06/25/2019 SANDRA LOPEZ MD Ot Z87.891 PERSONAL HISTORY OF NICOTINE DEPENDENCE 06/25/2019 SANDRA LOPEZ MD Ot Z88. 5 ALLERGY STATUS TO NARCOTIC AGENT STATUS 07/17/2019 SANDRA LOPEZ MD Ot I10 ESSENTIAL (PRIMARY) HYPERTENSION 07/17/2019 SANDRA LOPEZ MD Ot I25. 10 ATHSCL HEART DISEASE OF [place] CORONARY 07/17/2019 SANDRA LOPEZ MD Ot I34. 0 NONRHEUMATIC MITRAL (VALVE) INSUFFICIENC 07/17/2019 SANDRA LOPEZ MD Ot I48. 0 PAROXYSMAL ATRIAL FIBRILLATION 07/17/2019 SANDRA LOPEZ MD Ot R94. 39 ABNORMAL RESULT OF OTHER CARDIOVASCULAR 07/17/2019 SANDRA LOPEZ MD, Ot Z79. 01 ALF (CURRENT) USE OF ANTICOAGULANT 07/17/2019 SANDRA LOPEZ MD, Ot Z87.891 PERSONAL HISTORY OF NICOTINE DEPENDENCE 07/17/2019 SANDRA LOPEZ MD, Ot Z88. 5 ALLERGY STATUS TO NARCOTIC AGENT STATUS 11/12/2019 SANDRA LOPEZ MD Ot Z01.818 ENCOUNTER FOR OTHER PREPROCEDURAL EXAMIN 11/12/2019 SANDRA LOPEZ MD Ot Z20.828 CONTACT W AND EXPOSURE TO OTH VIRAL COMM 11/12/2019 SANDRA LOPEZ MD Ot Z01.818 ENCOUNTER FOR OTHER PREPROCEDURAL EXAMIN 11/12/2019 SANDRA LOPEZ MD Ot Z20.828 CONTACT W AND EXPOSURE TO OTH VIRAL COMM 11/12/2019 SANDRA LOPEZ MD Ot Z01.818 ENCOUNTER FOR OTHER PREPROCEDURAL EXAMIN 11/12/2019 SANDRA LOPEZ MD Ot Z20.828 CONTACT W AND EXPOSURE TO OTH VIRAL COMM 11/12/2019 EDINSON FARNSWORTH MD Ot I08.1 RHEUMATIC DISORDERS OF BOTH MITRAL AND T 11/12/2019 EDINSON FARNSWORTH MD Ot I48.91 UNSPECIFIED ATRIAL FIBRILLATION 11/12/2019 SANDRA LOPEZ MD Ot I10 ESSENTIAL (PRIMARY) HYPERTENSION 11/12/2019 SANDRA LOPEZ MD, Ot I25. 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 19 OTHER PERSISTENT ATRIAL FIBRILLATION 11/12/2019 EPI VINCENT MD Ot M19.011 PRIMARY OSTEOARTHRITIS, RIGHT SHOULDER 11/12/2019 EPI VINCENT MD Ot M19.032 PRIMARY OSTEOARTHRITIS, LEFT WRIST 11/12/2019 EPI VINCENT MD Ot S43.004D UNSPECIFIED DISLOCATION OF RIGHT [place] 11/12/2019 EPI VINCENT MD Ot S52.502D UNSP FX THE LOW END LEFT RAD, SUBS FOR C 11/12/2019 EPI VINCENT MD Ot S52.612D DISP FX OF L ULNA STYLOID PRO, SUBS FOR 11/12/2019 EPI VINCENT MD Ot S52.512D DISP FX OF L RADIAL STYLOID PRO, 7THD 11/12/2019 EPI VINCENT MD Ot Z98.890 OTHER SPECIFIED POSTPROCEDURAL STATES 11/12/2019 EPI VINCENT MD Ot R91. 1 SOLITARY PULMONARY NODULE 11/12/2019 EPI VINCENT MD Ot S43.014A ANTERIOR DISLOCATION OF RIGHT HUMERUS, I 11/12/2019 EPI VINCENT MD Ot S52.512D DISP FX OF L RADIAL STYLOID PRO, 7THD 11/12/2019 SANDRA LOPEZ MD Ot I10 ESSENTIAL (PRIMARY) HYPERTENSION 11/12/2019 SANDRA LOPEZ MD, Ot I25. 10 ATHSCL HEART DISEASE OF [place] CORONARY 11/12/2019 SANDRA LOPEZ MD, Ot I34. 0 NONRHEUMATIC MITRAL (VALVE) INSUFFICIENC 11/12/2019 SANDRA LOPEZ MD, Ot I48. 0 PAROXYSMAL ATRIAL FIBRILLATION 11/12/2019 SANDRA LOPEZ MD Ot R94. 39 ABNORMAL RESULT OF OTHER CARDIOVASCULAR 11/12/2019 SANDRA LOPEZ MD, Ot Z79. 01 ALF (CURRENT) USE OF ANTICOAGULANT 11/12/2019 SANDRA LOPEZ MD Ot Z87.891 PERSONAL HISTORY OF NICOTINE DEPENDENCE 11/12/2019 SANDRA LOPEZ MD, Ot Z88. 5 ALLERGY STATUS TO NARCOTIC AGENT STATUS 11/12/2019 SANDRA LOPEZ MD, Ot Z01.818 ENCOUNTER FOR OTHER PREPROCEDURAL EXAMIN 11/12/2019 SANDRA LOPEZ MD, Ot Z20.828 CONTACT W AND EXPOSURE TO OTH VIRAL COMM 11/12/2019 SANDRA LOPEZ MD, Ot Z01.812 ENCOUNTER FOR PREPROCEDURAL LABORATORY E 11/13/2019 SANDRA LOPEZ MD Ot E78. 5 HYPERLIPIDEMIA, UNSPECIFIED 11/13/2019 SANDRA LOPEZ MD Ot I11. 9 HYPERTENSIVE HEART DISEASE WITHOUT HEART 11/13/2019 SANDRA LOPEZ MD Ot I25. 10 ATHSCL HEART DISEASE OF [place] CORONARY 11/13/2019 SANDRA LOPEZ MD Ot I34. 0 NONRHEUMATIC MITRAL (VALVE) INSUFFICIENC 11/13/2019 SANDRA LOPEZ MD Ot I48. 0 PAROXYSMAL ATRIAL FIBRILLATION 11/13/2019 SANDRA LOPEZ MD Ot I65. 29 OCCLUSION AND STENOSIS OF UNSPECIFIED CA 11/13/2019 SANDRA LOPEZ MD Ot M79.669 PAIN IN UNSPECIFIED LOWER LEG 11/13/2019 SANDRA LOPEZ MD Ot R94. 39 ABNORMAL RESULT OF OTHER CARDIOVASCULAR 11/13/2019 SANDRA LOPEZ MD Ot Z79. 82 ALF (CURRENT) USE OF ASPIRIN 11/13/2019 SANDRA LOPEZ MD Ot Z79.899 OTHER ALF (CURRENT) DRUG THERAPY 11/13/2019 SANDRA LOPEZ MD Ot Z85. 51 PERSONAL HISTORY OF MALIGNANT NEOPLASM O 11/13/2019 SANDRA LOPEZ MD Ot Z87.891 PERSONAL HISTORY OF NICOTINE DEPENDENCE 11/15/2019 SANDRA LOPEZ MD Ot E78. 5 HYPERLIPIDEMIA, UNSPECIFIED 11/15/2019 SANDRA LOPEZ MD Ot I11. 9 HYPERTENSIVE HEART DISEASE WITHOUT HEART 11/15/2019 SANDRA LOPEZ MD Ot I25. 10 ATHSCL HEART DISEASE OF [place] CORONARY 11/15/2019 SANDRA LOPEZ MD Ot I34. 0 NONRHEUMATIC MITRAL (VALVE) INSUFFICIENC 11/15/2019 SANDRA LOPEZ MD Ot I48. 0 PAROXYSMAL ATRIAL FIBRILLATION 11/15/2019 SANDRA LOPEZ MD Ot I65. 29 OCCLUSION AND STENOSIS OF UNSPECIFIED CA 11/15/2019 SANDRA LOPEZ MD Ot M79.669 PAIN IN UNSPECIFIED LOWER LEG 11/15/2019 SANDRA LOPEZ MD Ot R94. 39 ABNORMAL RESULT OF OTHER CARDIOVASCULAR 11/15/2019 SANDRA LOPEZ MD Ot Z79. 82 STAFFING COORDINATOR (CURRENT) USE OF ASPIRIN 11/15/2019 SANDRA LOPEZ MD Ot Z79.899 OTHER STAFFING COORDINATOR (CURRENT) DRUG THERAPY 11/15/2019 SANDRA LOPEZ MD Ot Z85. 51 PERSONAL HISTORY OF MALIGNANT NEOPLASM O 11/15/2019 JESSICA LUTHER, SANDRA [place]lejo Ot Z87.891 PERSONAL HISTORY OF NICOTINE DEPENDENCE Procedures There is no data. Results Test [...] culture - 02/27/19 09:36 Bacterial urine culture [id number] NRG COLONY COUNT 90,000 CFU/ML NRG FTX;REPORTABLE [...] mg/dL 5-40 Automated blood complete blood count ( mogram) panel - 03/21/19 15:20 Blood leukocytes [...] 0.1-1.0 Serum or plasma alkaline phosphatase jean calros surement (enzymatic activity/volume) 92 U/L 40-136 Serum [...] pa fermín - 03/21/19 15:20 WRISTBAND NUMBER [id number] NRG ABO+Rh group BN NRG Blood group [...] culture - 03/21/19 17:33 Bacterial urine culture [id number] NRG COLONY COUNT 80,000 CFU/ML NRG FTX;REPORTABLE [...] Staphylococcus aureus (MRSA) scr eening culture NEG [facility] LIPID PANEL - 07/11/19 10:28 CHOLESTEROL, TOTAL 151 mg/dL <200 HDL CHOLESTEROL 60 mg/dL > OR = 40 TRIGLYCERIDES 66 mg/dL <150 LDL-CHOLESTEROL 76 mg/dL (calc) NRG CHOL/HDLC RATIO 2.5 (calc) <5.0 NON HDL CHOLESTEROL 91 mg/dL (calc) <130 CMP - 07/11/19 10:28 GLUCOSE 65 mg/dL 65-139 UREA NITROGEN (BUN) 20 mg/dL 7-25 CREATININE 1.06 mg/dL 0.70-1.18 eGFR NON-AFR. CITIZEN OF [place] 70 mL/min/1.73m2 > OR = 60 eGFR [...] 0.5 % NRG Coronavirus SARS-CoV-2 SO 2018 - 0 07:45 Coronavirus Ab [Units/volume] in Serum Negative Negative Automated blood complete blood count (he mogram) panel - 11/13/19 07:35 Blood leukocytes automated count (number/volume) 6.5 10*3/uL 4.3-11.0 Blood erythrocytes automated count (number/volume) 4.65 10*6/uL 4.35-5.85 Venous blood hemoglobin measurement (mass/volume) 13.7 g/dL 13.3-17.7 Blood hematocrit (volume fraction) 40 % 40-54 Automated erythrocyte mean corpuscular volume 85 [ foz_us] 80-99 Automated erythrocyte mean corpuscular h emoglobin (mass per erythrocyte) 30 pg 25-34 Automated erythrocyte mean corpuscular h emoglobin concentration measurement (mass/volume) 35 g/dL 32-36 Automated erythrocyte distribution width ratio 13. 4 % 10.0- 14.5 Automated blood platelet count (count/volume) 195 10*3/uL 130-400 Automated blood platelet mean volume measurement 9.4 [foz_us] 7.4-10.4 PT panel in platelet poor plasma by coag ulation assay - 11/13/19 07:35 Prothrombin time (PT) in platelet poor plasma by coagu lation assay 15.1 s 12.2-14.7 INR in platelet poor plasma or blood by coagulation as say 1.2 0.8-1.4 Activated partial thromboplastin time (a PTT) in platelet poor plasma bycoagulation assay - 11/13/19 07:35 Activated partial thromboplastin time (a PTT) in platelet poor plasma bycoagulation assay 34 s 24-35 Comprehensive metabolic panel - 11/13/19 07:35 Serum or plasma sodium measurement (moles/volume) 142 mmol/L 135-145 Serum or plasma potassium measurement (moles/volume) 4.2 mmol/L 3.6-5.0 Serum or plasma chloride measurement (moles/volume) 109 mmol/L 98-107 Carbon dioxide 23 mmol/L 21-32 Serum or plasma anion gap determination (moles/volume) 10 mmol/L 5-14 Serum or plasma urea nitrogen measurement (mass/volume ) 18 mg/dL 7-18 Serum or plasma creatinine measurement (mass/volume) 1.22 mg/dL 0.60-1.30 Serum or plasma urea nitrogen/creatinine mass ratio 15 NRG Serum or plasma creatinine measurement w ith calculation of estimated glomerular filtration rate 58 NRG Serum or plasma glucose measurement (mass/volume) 94 mg/dL 70-105 Serum or plasma calcium measurement (mass/volume) 8.9 mg/dL 8.5-10.1 Serum or plasma total bilirubin measurement (mass/volu me) 1.1 mg/dL 0.1-1.0 Serum or plasma alkaline phosphatase jean carlos surement (enzymatic activity/volume) 97 U/L 40-136 Serum or plasma aspartate aminotransfera se measurement (enzymatic activity/volume) 20 U/L 5-34 Serum or plasma alanine aminotransferase measurement (enzymatic activity/volume) 32 U/L 0-55 Serum or plasma protein measurement (mass/volume) 7.1 g/dL 6.4-8.2 Serum or plasma albumin measurement (mass/volume) 4.1 g/dL 3.2-4.5 CALCIUM CORRECTED 8.8 mg/dL 8.5-10.1 Lipid 1996 panel - 11/13/19 07:35 Serum or plasma triglyceride measurement (mass/volume) 59 mg/dL <150 Serum or plasma cholesterol measurement (mass/volume) 114 mg/dL < 200 Serum or plasma cholesterol in HDL measurement (mass/v olume) 46 mg/dL 40-60 Cholesterol in LDL [mass/volume] in serum or plasma by direct assay 57 mg/dL 1-129 Serum or plasma cholesterol in VLDL measurement (mass/ volume) 12 mg/dL 5-40 Methicillin resistant Staphylococcus aur eus (MRSA) screening culture - 11/13/19 07:35 Methicillin resistant Staphylococcus aureus (MRSA) scr eening culture NEG NRG Encounters ACCT No. Visit Date/Time Discharge Status Pt. Type Provider Facility Loc./Unit Complaint [id number] 10/24/2019 10:00:00 10/24/2019 23:59: 59 CLS Outpatient DAJA EDINSON [facility] [id number] 07/11/2019 09:00:00 Document Registration [id number] 12/29/2018 07:30:00 Document Registration [id number] 11/13/2019 07:10:00 11:40:00 DIS Outpatient SANDAR LOPEZ MD [facility] AFIB [id number] 11/11/2019 07:03:00 23:59:59 CLS Outpatient SANDRA LOPEZ MD [facility] LABNPT [id number] 11/06/2019 07:09:00 23:59:59 CLS Outpatient SANDRA LOPEZ MD [facility] LABNPT [id number] 06/12/2019 10:30:00 23:59:59 CLS Outpatient SANDRA LOPEZ MD [facility] AFIB [id number] 04/29/2019 09:17:00 23:59:59 CLS Outpatient EPI IVNCENT MD [facility] ORTHO [id number] 04/08/2019 09:27:00 23:59:59 CLS Outpatient EPI VINCENT MD [facility] ORTHO [id number] 03/28/2019 08:40:00 23:59:59 CLS Outpatient EPI VINCENT MD [facility] ORTHO [id number] 03/21/2019 18:29:00 17:37:00 DIS Inpatient KATRIN HOWARD DO [facility] 4TH CLOSED HEAD INJ ON ANTI COAGULANTS [id number] 02/27/2019 08:29:00 10:10:00 DIS Outpatient SANDRA LOPEZ MD [facility] ABN STRESS TEST [id number] 02/06/2019 13:40:00 23:59:59 CLS Outpatient EDINSON AFRNSWORTH MD [facility] CARD AFIB [id number] 02/06/2019 11:36:00 23:59:59 CLS Outpatient SANDRA LOPEZ MD [facility] CARD ATRIAL FIBRILLATION,HTN [id number] 12/11/2019 08:39:[address] Outpatient SANDRA LOPEZ MD [facility] PAF,AF MANAGEMENT
[2019-12-11] MEDS ORDERED: LIDOCAINE 1% INJ 20 ML 20 ML VIAL INJ ONE (08:45)
[2019-12-11 08:51] VITALS: BP 144/64
--- NOTE | 2019-12-11 09:24 | Implantation of Loop Monitor ---
Implant of Loop Monitior IMPLANTATION OF LOOP MONITOR REPORT DATE OF PROCEDURE: 12/11/19 PREOP DIAGNOSIS: Paroxysmal atrial fibrillation POSTOP DIAGNOSIS: Paroxysmal atrial fibrillation PROCEDURE DETAILS: The patient is a 74 male with history of paroxysmal atrial fibrillation requiring long-term surveillance. Therefore implantable loop recorder was discussed and agreed with the patient. Informed consent was taken. All risks and complications were discussed at length. The patient was draped and prepped in the usual sterile fashion. Local anesthesia was lidocaine, which was given in the substernal area close to the 4th intercostal space. Loop monitor [employer] with serial number [id number] was implanted according to the protocol. Steri- Strips were placed at the end of the procedure. There were no complications and the patient tolerated the procedure well. The device was interrogated with a voltage of. ANESTHESIA: Local anesthesia with lidocaine. COMPLICATIONS: None CONTRAST/FLUOROSCOPY: None CONCLUSION: Successful implantation of Loop monitor with no complications FINAL DIAGNOSIS: Paroxysmal atrial fibrillation Hypertension Hyperlipidemia SANDRA LOPEZ MD Dec 11, 2019 09:24
== END 2019-12-11 09:43 | disposition home or self-care (01) ==
LOC: CATH 08:39
PROVIDERS: ATTEND Internal Medicine Cardiovascular Disease
DX: I48.0 Paroxysmal atrial fibrillation (principal); I10 Essential (primary) hypertension; E78.5 Hyperlipidemia, unspecified; I25.10 Atherosclerotic heart disease of native coronary artery without angina pectoris; I65.29 Occlusion and stenosis of unspecified carotid artery; K21.9 Gastro-esophageal reflux disease without esophagitis; Z79.82 Long term (current) use of aspirin; Z79.899 Other long term (current) drug therapy; Z88.5 Allergy status to narcotic agent; Z87.891 Personal history of nicotine dependence
CPT/HCPCS: 33285; C1764

== ENCOUNTER 2022-06-07 22:38 | Emergency (ER) | payer MEDICARE ==
[~2022-06-07] VITALS: Ht 170 cm; Wt 77.0 kg
[~2022-06-07 22:38] MED LIST changes: -AMIO200T4 PO; +AMIO200T65 PO; +ASPI-1238 PO; -ASPI-983 PO; -LISI-552 PO; +LISI20TA26 PO
[2022-06-07 23:39] LABS: BASOPHILS % (AUTO) 0 % (0-10); EOSINOPHILS % (AUTO) 0 % (0-10); HEMATOCRIT 44 % (40-54); HEMOGLOBIN 14.6 g/dL (13.3-17.7); LYMPHOCYTES % (AUTO) 6 % (12-44); MEAN CORPUSCULAR HEMOGLOBIN 29 pg (25-34); MEAN CORPUSCULAR HGB CONC 33 g/dL (32-36); MEAN CORPUSCULAR VOLUME 88 fL (80-99); MEAN PLATELET VOLUME 9.4 fL (9.0-12.2); MONOCYTES # (AUTO) 0.6 10^3/uL (0.0-1.0); MONOCYTES % (AUTO) 4 % (0-12); NEUTROPHILS # (AUTO) 14.8 10^3/uL (1.8-7.8); NEUTROPHILS % (AUTO) 90 % (42-75); PLATELET COUNT 200 10^3/uL (130-400); WHITE BLOOD COUNT 16.4 10^3/uL (4.3-11.0)
[2022-06-07] MEDS ORDERED: NS IV 1000 ML 1,000 ML IV SCH (23:45)
[2022-06-07] MEDS ORDERED: ONDANSETRON 4 MG/2 ML (SDV) Z0FRAN IVP ONE (23:45)
[2022-06-07] MEDS ORDERED: fentaNYL INJ 100 MCG/2 ML AMP IVP ONE (23:45)
[2022-06-07 23:49] LABS: ALBUMIN 4.5 GM/DL (3.2-4.5); POTASSIUM 3.9 MMOL/L (3.6-5.0)
[2022-06-07 23:50] LABS: CALCIUM 9.1 MG/DL (8.5-10.1)
[2022-06-07 23:53] LABS: BILIRUBIN,TOTAL 0.8 MG/DL (0.1-1.0)
[2022-06-07 23:54] LABS: INR 1.4 (0.8-1.4); PROTHROMBIN TIME PATIENT 17.5 SEC (12.2-14.7)
[2022-06-07 23:55] LABS: CREATININE SERUM 1.57 MG/DL (0.60-1.30)
[2022-06-08 00:17] LABS: LYMPHOCYTES % (MANUAL) 8 %; MONOCYTES % (MANUAL) 5 %; NEUTROPHILS % (MANUAL) 87 %; RBC MORPH NORMAL
[2022-06-08 00:35] LABS: BILIRUBIN,URINE NEGATIVE (NEGATIVE); CLARITY,URINE CLEAR; COLOR,URINE YELLOW; GLUCOSE, URINE (UA) TRACE (NEGATIVE); KETONES,URINE 1+ (NEGATIVE); NITRITE,URINE POSITIVE (NEGATIVE); PROTEIN,URINE NEGATIVE (NEGATIVE)
[2022-06-08 00:36] LABS: BACTERIA,URINE LARGE /HPF; LEUKOCYTE ESTERASE ,URINE TRACE (NEGATIVE); RBC,URINE 0-2 /HPF
--- NOTE | 2022-06-08 00:42 | ED Abdominal Pain ---
General Chief Complaint: Abdominal/GI Problems Stated Complaint: HERNIA, ABDOMINAL PAIN Nursing Triage Note: PT TO ED W/ C/O ABD PAIN RADIATING INTO RT TESTICLE ONSET X2 DAYS, WORSE TODAY Source of Information: Patient Exam Limitations: No Limitations History of Present Illness Date Seen by Provider: Jun 07, 2022 Time Seen by Provider: 22:41 Allergies and Home Medications Allergies Coded Allergies: morphine (Verified Allergy, Unknown, 02/27/19) Patient Home Medication List Amiodarone HCl (Amiodarone HCl) 200 Mg Tablet, 200 MG PO UD Prescribed by: SANDRA LOPEZ on 11/13/19 0927 Aspirin (Aspirin EC) 81 Mg Tablet.dr, 81 MG PO DAILY, (Reported) Entered as Reported by: IKE MARTIN on 11/13/19 08 Atorvastatin Calcium (Atorvastatin Calcium) 10 Mg Tablet, 10 MG PO DAILY, (Reported) Entered as Reported by: IKE MARTIN on 06/12/19 1022 Lisinopril (Lisinopril) 20 Mg Tablet, 20 MG PO DAILY, (Reported) Entered as Reported by: IKE MARTIN on 06/12/19 1017 Metoprolol Succinate (Metoprolol Succinate) 25 Mg Tab.er.24h, 25 MG PO DAILY, (Reported) Entered as Reported by: IKE MARTIN on 02/27/19 1019 Multivit-Min/FA/Lycopene/Lut (Centrum Silver Tablet) 1 Each Tablet, 1 EACH PO DAILY, (Reported) Entered as Reported by: IKE MARTIN on 02/27/19 1019 Rivaroxaban (Xarelto) 20 Mg Tablet, 20 MG PO DAILY, (Reported) Entered as Reported by: IKE MARTIN on 06/12/19 1022 Saw [place] Fruit/Zinc Picoli (Saw [place] 450 mg Capsule) 1 Each Capsule, 2 EACH PO DAILY, (Reported) Entered as Reported by: IKE MARTIN on 11/13/19 0805 Past Ahblrep-Sbfkiy-Lrvmuv Hx Immunizations Up To Date Tetanus Booster (TDap): Less than 5yrs PED Vaccines UTD: Yes Past Medical History Surgeries: Yes (BLADDER DUE TO CANCER) Bladder Surgery Respiratory: No Currently Using CPAP: No Currently Using BIPAP: No Cardiac: Yes Atrial Fibrillation Neurological: No Genitourinary: No Gastrointestinal: No Endocrine: No Cancer: Yes Bladder Did You Recieve Any Treatments: Yes What Type of Treatment Did You: Surgical Intervention Psychosocial: No Blood Disorders: No Family Medical History Other Conditions/Hx Physical Exam Vital Signs Vital Signs - First Documented 06/07/22 22:43 Temp 36.5 Pulse 96 Resp 24 B/P (MAP) 144/82 (102) Pulse Ox 97 O2 Delivery Room Air Capillary Refill : Less Than 3 Seconds Height/Weight/BMI Height: '" Weight: lbs. oz. kg; 26.00 BMI Method: Focused Exam Lactate Level 06/08/22 03:20: Lactic Acid Level Laboratory Tests Test 06/08/22 03:20 Progress/Results/Core Measures Results/Orders Lab Results Laboratory Tests Test 06/07/22 23:25 06/08/22 00:19 06/08/22 03:20 Range/Units White Blood Count 16.4 H 4.3-11.0 10^3/uL Red Blood Count 5.01 4.30-5.52 10^6/uL Hemoglobin 14.6 13.3-17.7 g/dL Hematocrit 44 40-54 % Mean Corpuscular Volume 88 80-99 fL Mean Corpuscular Hemoglobin 29 25-34 pg Mean Corpuscular Hemoglobin Concent 33 32-36 g/dL Red Cell Distribution Width 13.1 10.0-14.5 % Platelet Count 200 130-400 10^3/uL Mean Platelet Volume 9.4 9.0-12.2 fL Immature Granulocyte % (Auto) 0 % Neutrophils (%) (Auto) 90 H 42-75 % Lymphocytes (%) (Auto) 6 L 12-44 % Monocytes (%) (Auto) 4 0-12 % Eosinophils (%) (Auto) 0 0-10 % Basophils (%) (Auto) 0 0-10 % Neutrophils # (Auto) 14.8 H 1.8-7.8 10^3/uL Lymphocytes # (Auto) 1.0 1.0-4.0 10^3/uL Monocytes # (Auto) 0.6 0.0-1.0 10^3/uL Eosinophils # (Auto) 0.0 0.0-0.3 10^3/uL Basophils # (Auto) 0.0 0.0-0.1 10^3/uL Immature Granulocyte # (Auto) 0.1 0.0-0.1 10^3/uL Neutrophils % (Manual) 87 % Lymphocytes % (Manual) 8 % Monocytes % (Manual) 5 % Blood Morphology Comment NORMAL Prothrombin Time 17.5 H 12.2-14.7 SEC INR Comment 1.4 0.8-1.4 Activated Partial Thromboplast Time 41 H 24-35 SEC Sodium Level 137 135-145 MMOL/L Potassium Level 3.9 3.6-5.0 MMOL/L Chloride Level 104 98-107 MMOL/L Carbon Dioxide Level 21 21-32 MMOL/L Anion Gap 12 5-14 MMOL/L Blood Urea Nitrogen 25 H 7-18 MG/DL Creatinine 1.57 H 0.60-1.30 MG/DL Estimat Glomerular Filtration Rate 46 BUN/Creatinine Ratio 16 Glucose Level 150 H 70-105 MG/DL Calcium Level 9.1 8.5-10.1 MG/DL Corrected Calcium 8.7 8.5-10.1 MG/DL Total Bilirubin 0.8 0.1-1.0 MG/DL Aspartate Amino Transf (AST/SGOT) 16 5-34 U/L Alanine Aminotransferase (ALT/SGPT) 20 0-55 U/L Alkaline Phosphatase 98 40-136 U/L C-Reactive Protein High Sensitivity 6.48 H 0.00-0.50 MG/DL Total Protein 8.0 6.4-8.2 GM/DL Albumin 4.5 3.2-4.5 GM/DL Lipase 22 8-78 U/L Urine Color YELLOW Urine Clarity CLEAR Urine pH 6.0 5-9 Urine Specific [place] 1.020 1.016-1.022 Urine Protein NEGATIVE NEGATIVE Urine Glucose (UA) TRACE H NEGATIVE Urine Ketones 1+ H NEGATIVE Urine Nitrite POSITIVE H NEGATIVE Urine Bilirubin NEGATIVE NEGATIVE Urine Urobilinogen 1.0 < = 1.0 MG/DL Urine Leukocyte Esterase TRACE H NEGATIVE Urine RBC (Auto) TRACE H NEGATIVE Urine RBC 0-2 /HPF Urine WBC 5-10 H /HPF Urine Crystals NONE /LPF Urine Bacteria LARGE H /HPF Urine Casts NONE /LPF Urine Mucus NEGATIVE /LPF Urine Culture Indicated YES My Orders Orders - ENRIQUE HENDRICKSON MD Cbc With Automated Diff (06/07/22 22:41) Comprehensive Metabolic Panel (06/07/22 22:41) Hs C Reactive Protein (06/07/22 22:41) Lipase (06/07/22 22:41) Ed Iv/Invasive Line Start (06/07/22 22:41) Ua Culture If Indicated (06/07/22 22:41) Protime With Inr (06/07/22 23:34) Partial Thromboplastin Time (06/07/22 23:34) Ns Iv 1000 Ml (Sodium Chloride 0.9%) (06/07/22 23:45) Ondansetron Injection (Zofran Injectio (06/07/22 23:45) Fentanyl Inj (Sublimaze Injection) (06/07/22 23:45) Manual Differential (06/07/22 23:25) Urine Culture (06/08/22 00:19) Ct Abdomen/Pelvis Wo (06/08/22 00:52) Fentanyl Inj (Sublimaze Injection) (06/08/22 03:00) Blood Culture (06/08/22 03:02) Protime With Inr (06/08/22 03:02) Partial Thromboplastin Time (06/08/22 03:02) Chest 1 View, Ap/Pa Only (06/08/22 03:02) Vital Signs Adult Sepsis Patie Q15M (06/08/22 03:02) O2 (06/08/22 03:02) Remove Rings In Anticipation O (06/08/22 03:02) Lactic Acid Analyzer (06/08/22 03:02) Ceftriaxone 1 Gm Pre-Mix (Rocephin 1 Gm (06/08/22 03:02) Medications Given in ED Current Medications Medications Dose Ordered Sig/Jm Route Start Time Stop Time Status Last Admin Dose Admin Fentanyl Citrate 50 mcg ONCE ONCE IVP 06/07/22 23:45 06/07/22 23:46 DC 06/07/22 23:45 50 MCG Fentanyl Citrate 75 mcg ONCE ONCE IVP 06/08/22 03:00 06/08/22 03:01 DC 06/08/22 03:28 75 MCG Ondansetron HCl 4 mg ONCE ONCE IVP 06/07/22 23:45 06/07/22 23:46 DC 06/07/22 23:41 4 MG Vital Signs/I&O 06/07/22 22:43 Temp 36.5 Pulse 96 Resp 24 B/P (MAP) 144/82 (102) Pulse Ox 97 O2 Delivery Room Air Blood Pressure Mean: 102 Progress Progress Note #1: Time: 03:27 Progress Note Patient was interviewed and examined. Pain was treated with fentanyl. Nausea was treated with Zofran. Labs were obtained including CBC, CMP, CRP, lipase, and urinalysis. Pertinent findings were leukocytosis of 16,000, mild renal impairment with elevated creatinine, and pyuria on the urinalysis. Patient was hydrated with IV fluids. CT scan was obtained to further evaluate the abdominal pain. A noncontrast study was utilized due to the impaired renal function. Two pertinent findings were noted. There was hydroureter noted on the right extending down to the bladder wall. No calculi were associated with this obstruction. In the context of bladder cancer, this is concerning for a neoplastic etiology. Second, there is a new gallstone in the gallbladder which was not seen previously. There are no associated inflammatory findings such as wall thickening or pericholecystic fluid. Patient has required a second dose of fentanyl. Progress Note #2: Time: 03:52 Progress Note Case was discussed with Dr. Ibrahim, urologist at [facility] in [place]. He recommended conservative therapy initially with IV antibiotics and IV hydration. This is being initiated in the emergency room with a dose of Rocephin after blood cultures and lactic acid are drawn. He has already received a liter of IV fluids. Dr. Ibrahim was willing to accept consultation if patient was admitted to the hospitalist service. He did advise that patient may need IR therapy if conservative treatments of antibiotics and hydration were not effective and ureteral stenting could not be achieved. I discussed options with the patient including transfer to [facility] with the knowledge that they do not have IR therapy versus attempt to transfer to higher level of care at a facility with IR therapy. Transfer to higher level of care than [facility] would require transfer a longer distance to [place] or possibly [facility] in [place]. Patient elected to transfer to [facility]. I discussed with Dr. Price, hospitalist, who graciously accepted the transfer. Patient remains in stable condition and is awaiting bed assignment and EMS availability. Diagnostic Imaging Diagonstic Imaging: CT Plain Films/CT/US/NM/MRI: abdomen, pelvis Comments CT scan was viewed by me and [facility] report was reviewed. Incidental findings include a right lower lobe pulmonary nodule measuring 18 mm which appears unc hanged from prior. There are also numerous hepatic cysts. New findings include a calcified gallstone measuring 2.1 cm without evidence of surrounding inflammatory changes such as wall thickening or pericholecystic fluid. No biliary duct dilatation was noted. Right hydronephrosis with hydroureter was noted to the level of the bladder wall. No calculi were seen associated with t he hydroureter. Departure Impression Primary Impression: Ureteral obstruction, right Additional Impressions: Urinary tract infection Qualified Codes: N39.0 - Urinary tract infection, site not specified History of bladder cancer Anticoagulated Right sided abdominal pain Cholelithiasis Qualified Codes: K80.20 - Calculus of gallbladder without cholecystitis without obstruction Disposition: 02 XFER SHT-TRM HOSP Condition: Improved Transfer Transfer Reason: Exceeds level of care Time Spoke to Accepting Phy: 03:25 Transfer Progress Notes Transfer accepted by Dr. Price, hospitalist at [facility], after consultation with Dr. Ibrahim, urologist. Transfer Facility: [facility] Method of Transfer: EMS Departure-Patient Inst. Referrals: EDINSON FARNSWORTH MD (PCP/Family) Primary Care Physician ENRIQUE HENDRICKSON MD Jun 08, 2022 00:42
[2022-06-08] MEDS ORDERED: fentaNYL INJ 100 MCG/2 ML AMP IVP ONE ×2 (03:00→09:00)
[2022-06-08] MEDS ORDERED: cefTRIAXone 1 GM PRE-MIX 50 ML IV STA (03:02)
--- NOTE | 2022-06-08 06:06 | Diagnostic Imaging Report ---
CHEST 1 VIEW, AP/PA ONLY Indication: Leukocytosis Comparison: 11/13/2019 Findings: Stable right lower lobe pulmonary nodule which can be considered benign given long-term stability. Remainder of the lungs are clear. No pleural effusion or pneumothorax. Normal cardiomediastinal silhouette. Impression: 1. No acute cardiopulmonary process by portable radiography. Dictated by: Dictated on workstation # [id number]
--- NOTE | 2022-06-08 07:04 | Diagnostic Imaging Report ---
CT ABDOMEN/PELVIS WO TECHNIQUE: Unenhanced CT imaging of the abdomen and pelvis was performed. 2-D reformats are created and submitted for interpretation. Automatic exposure controls were utilized to optimize patient dose. 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 Otherwise, lung bases are clear. Peritoneum: No free intraperitoneal air or fluid. Liver and biliary system: Multiple hepatic cysts are again noted. The previously noted cyst in segment 6 is no longer present. Cholelithiasis without features of acute cholecystitis. Spleen and Pancreas: Spleen is normal. Unenhanced pancreas is grossly normal. Adrenals: Normal. tract: No renal or ureteral stones. There is asymmetric dilation of the right ureter without appreciable obstructing soft tissue mass. No concerning focal renal lesion. Urinary bladder is normally filled without wall thickening. Prostate is not enlarged. GI tract: Stomach is decompressed. No bowel obstruction. No pericolonic inflammatory changes. Sigmoid colon diverticulosis without diverticulitis. Normal appendix. 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 Moderate atherosclerotic plaquing is present throughout the aorta. No abdominal or pelvic lymphadenopathy. Musculoskeletal: No concerning osseous lesion. No inguinal hernia. IMPRESSION: 1. Mild asymmetric dilation of the right ureter without obstructing stone or appreciable mass. This could be due to distal stricture versus sequelae of recently passed stone. 2. Cholelithiasis without CT features of acute cholecystitis. 3. Sigmoid colon diverticulosis without diverticulitis. 4. Findings are in agreement with the preliminary report. Dictated by: Dictated on workstation # [id number]
[2022-06-08 09:16] VITALS: BP 146/89
== END 2022-06-08 09:18 | disposition short-term general hospital (02) ==
LOC: EDUNIT# 22:38 → ER 22:39
DX: N13.1 Hydronephrosis with ureteral stricture, not elsewhere classified (principal); K80.20 Calculus of gallbladder without cholecystitis without obstruction; N39.0 Urinary tract infection, site not specified; K76.89 Other specified diseases of liver; R91.1 Solitary pulmonary nodule; Z85.51 Personal history of malignant neoplasm of bladder; Z88.5 Allergy status to narcotic agent; Z79.01 Long term (current) use of anticoagulants
CPT/HCPCS: 36415; 71045; 74176; 80053; 81000; 83605; 83690; 85007; 85027; 85610; 85730; 86141; 87040; 87077; 87088; 87186

== ENCOUNTER → 2023-02-08 | Outpatient (CLI) | payer MEDICARE ==
[~2023-02-08] MED LIST changes: +CATHETER FLUSH 10 ML SYR IVP PRN; +REGADENOSON 0.4 MG/5 ML SYR IV ONE
[2023-02-08 12:42] VITALS: BP 193/86
[2023-02-08 12:55] VITALS: BP 205/87
--- NOTE | 2023-02-08 16:00 | Cardiology Stress Test Report ---
Stress Test Report Date of Procedure/Referring: Date of Procedure: Feb 08, 2023 PCP Edinson Martinez MD Admitting Physician Admitting Physician: Attending Physician: Jasmina Melton Baseline Heart Rate: 45 Baseline Blood Pressure: Blood Pressure Systolic: 205 Blood Pressure Diastolic: 87 Baseline Vitals Vital Signs Date Time Temp Pulse Resp B/P (MAP) Pulse Ox O2 Delivery O2 Flow Rate FiO2 02/08/23 12:42 49 193/86 (121) Baseline EKG: Baseline EKG: NSR Summary After explaining the procedure to the patient, he signed a consent and then brought to the stress nuclear laboratory. Patient received 0.4 mg Lexiscan for stress test, ECG, heart rate and blood pressure were monitored continuously. Resting and stress dose of radio tracer were injected, imaging was acquired and reviewed in short axis, horizontal long axis and vertical long axis views. TID: 0.98 SSS: 2 SDS: 2 EF: 50 Patient was unable to exercise beyond 6 minutes on standard Jonel protocol achieving only 69% of maximal expected heart rate, test was converted to Lexiscan Myoview stress test Patient tolerated Lexiscan well No significant ischemia or infarction noted on SPECT images Normal left ventricular size, ejection fraction 50% Copy Copies To 1: EDINSON MARTINEZ MD, BASHAR J MD Feb 08, 2023 15:59
== END ==
LOC: CARD 10:29
PROVIDERS: ATTEND Physician Assistant
DX: I10 Essential (primary) hypertension (principal)
CPT/HCPCS: 78452; 93017; A9502

== ENCOUNTER 2023-03-27 21:21 | Emergency (ER) | payer MEDICARE ==
[~2023-03-27] VITALS: Ht 170.1 cm; Wt 77.5 kg
[~2023-03-27 21:21] MED LIST changes: -CATHETER FLUSH 10 ML SYR IVP PRN; -REGADENOSON 0.4 MG/5 ML SYR IV ONE
--- NOTE | 2023-03-27 21:31 | ED General ---
General Chief Complaint: Upper Extremity Stated Complaint: LEFT SHOULDER PAIN Source of Information: Patient Exam Limitations: No Limitations History of Present Illness Date Seen by Provider: Mar 27, 2023 Time Seen by Provider: 21:31 Initial Comments Patient is a 77-year-old male who presents to the emergency room with a chief complaint of throbbing left shoulder pain. He states the pain has been present for about 2 weeks, movement makes it worse. He has been taking 4 or five 500 mg Tylenol at a time to try and alleviate the pain. He states it got much worse this afternoon at about 3:30pm. He has felt a little nauseated. He does not recall any trauma, push or pull or lifting injury. He states it feels like his shoulder is dislocated as he has had similar pain on the right side in the past. He has been trying all kinds of ointments without any relief. States earlier in the evening his left hand felt "cold" like it was not getting any "circulation". Allergies to morphine. History of hypertension and A-fib. Anticoagulated on Xarelto. 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 Last ate around 430/6 PM. Denies tobacco, alcohol, illicit drugs. Timing/Duration: Other (2 weeks) Severity: Severe Modifying Factors: worse with Movement Associated Systoms: Nausea/Vomiting (nausea) Allergies and Home Medications Allergies Coded Allergies: morphine (Verified Allergy, Unknown, 02/27/19) Patient Home Medication List Home Medication List Reviewed: Yes Amiodarone HCl (Amiodarone HCl) 200 Mg Tablet, 200 MG PO UD Prescribed by: SANDRA RUSSO on 11/13/19 0927 Aspirin (Aspirin EC) 81 Mg Tablet.dr, 81 MG PO DAILY, (Reported) Entered as Reported by: IKE MARTIN on 11/13/19 0805 Atorvastatin Calcium (Atorvastatin Calcium) 10 Mg Tablet, 10 MG PO DAILY, (Reported) Entered as Reported by: IKE MARTIN on 06/12/19 1022 Lisinopril (Lisinopril) 20 Mg Tablet, 20 MG PO DAILY, (Reported) Entered as Reported by: IKE MARTIN on 06/12/19 1017 Metoprolol Succinate (Metoprolol Succinate) 25 Mg Tab.er.24h, 25 MG PO DAILY, (Reported) Entered as Reported by: IKE MARTIN on 02/27/19 1019 Multivit-Min/FA/Lycopene/Lut (Centrum Silver Tablet) 1 Each Tablet, 1 EACH PO DAILY, (Reported) Entered as Reported by: IKE MARTIN on 02/27/19 1019 Oxycodone HCl/Acetaminophen (Percocet 5-325 mg Tablet) 1 Each Tablet, 1 TAB PO Q6H Prescribed by: LESLIE CAMACHO on 03/27/23 2359 Rivaroxaban (Xarelto) 20 Mg Tablet, 20 MG PO DAILY, (Reported) Entered as Reported by: IKE MARTIN on 06/12/19 1022 Saw [place]cyrus Fruit/Zinc Picoli (Saw [place]rus 450 mg Capsule) 1 Each Capsule, 2 EACH PO DAILY, (Reported) Entered as Reported by: IKE MARTIN on 11/13/19 0805 Review of Systems Review of Systems Constitutional: see HPI Gastrointestinal: nausea Musculoskeletal: joint pain (left shoulder) Past Iczuzar-Orbhjq-Dozoxo Hx Immunizations Up To Date Tetanus Booster (TDap): Less than 5yrs PED Vaccines UTD: Yes First/Initial COVID19 Vaccinat: UNKNOWN Past Medical History Surgeries: Yes (BLADDER DUE TO CANCER) Bladder Surgery Respiratory: No Currently Using CPAP: No Currently Using BIPAP: No Cardiac: Yes Atrial Fibrillation, Hypertension Neurological: No Genitourinary: Yes (History of bladder cancer) Gastrointestinal: No Endocrine: No Cancer: Yes Bladder Did You Recieve Any Treatments: Yes What Type of Treatment Did You: Surgical Intervention Psychosocial: No Blood Disorders: No Family Medical History Other Conditions/Hx Physical Exam Vital Signs Vital Signs - First Documented 03/27/23 21:32 Pulse 88 B/P (MAP) 180/119 (139) Pulse Ox 97 O2 Delivery Room Air Capillary Refill : Height, Weight, BMI Height: '" Weight: lbs. oz. kg; 26.00 BMI Method: General Appearance: WD/WN, Mild Distress Eyes: Bilateral Eye Normal Inspection, Bilateral Eye PERRL, Bilateral Eye EOMI Respiratory: Lungs Clear, Normal Breath Sounds, No Accessory Muscle Use, No Respiratory Distress Cardiovascular: Regular Rate, Rhythm, Normal Peripheral Pulses (2+ ;eft radial pulse) Extremity: Normal Capillary Refill, Other (obvious deformity - left shoulder; decreased ROM left shoulder. tenderness over the proximal upper arm. 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) Neurologic/Psychiatric: Alert, Oriented x3, No Motor/Sensory Deficits, Normal Mood/Affect Skin: Normal Color, Warm/Dry Progress/Results/Core Measures Suspected Sepsis SIRS Temperature: Pulse: Respiratory Rate: Laboratory Tests 03/27/23 21:40: White Blood Count 13.4H Blood Pressure / Mean: Laboratory Tests 03/27/23 21:40: Creatinine 1.15, INR Comment 2.2H, Platelet Count 225 Results/Orders Lab Results Laboratory Tests Test 03/27/23 21:40 Range/Units White Blood Count 13.4 H 4.3-11.0 10^3/uL Red Blood Count 4.68 4.30-5.52 10^6/uL Hemoglobin 13.9 13.3-17.7 g/dL Hematocrit 42 40-54 % Mean Corpuscular Volume 90 80-99 fL Mean Corpuscular Hemoglobin 30 25-34 pg Mean Corpuscular Hemoglobin Concent 33 32-36 g/dL Red Cell Distribution Width 13.1 10.0-14.5 % Platelet Count 225 130-400 10^3/uL Mean Platelet Volume 9.5 9.0-12.2 fL Immature Granulocyte % (Auto) 0 % Neutrophils (%) (Auto) 84 H 42-75 % Lymphocytes (%) (Auto) 12 12-44 % Monocytes (%) (Auto) 3 0-12 % Eosinophils (%) (Auto) 1 0-10 % Basophils (%) (Auto) 0 0-10 % Neutrophils # (Auto) 11.2 H 1.8-7.8 10^3/uL Lymphocytes # (Auto) 1.6 1.0-4.0 10^3/uL Monocytes # (Auto) 0.4 0.0-1.0 10^3/uL Eosinophils # (Auto) 0.1 0.0-0.3 10^3/uL Basophils # (Auto) 0.0 0.0-0.1 10^3/uL Immature Granulocyte # (Auto) 0.1 0.0-0.1 10^3/uL Prothrombin Time 25.5 H 12.2-14.7 SEC INR Comment 2.2 H 0.8-1.4 Activated Partial Thromboplast Time 41 H 24-35 SEC Sodium Level 138 135-145 MMOL/L Potassium Level 4.2 3.6-5.0 MMOL/L Chloride Level 107 98-107 MMOL/L Carbon Dioxide Level 22 21-32 MMOL/L Anion Gap 9 5-14 MMOL/L Blood Urea Nitrogen 23 H 7-18 MG/DL Creatinine 1.15 0.60-1.30 MG/DL Estimat Glomerular Filtration Rate 66 BUN/Creatinine Ratio 20 Glucose Level 165 H 70-105 MG/DL Calcium Level 8.6 8.5-10.1 MG/DL Troponin I < 0.028 <0.028 NG/ML My Orders Orders - LESLIE CAMACHO MD Shoulder, Left, 3 Views (03/27/23 21:38) Fentanyl Injection (Fentanyl Injection (03/27/23 21:45) Ns Iv 1000 Ml (Ns Iv 1000 Ml) (03/27/23:45) Propofol Injection (Propofol Injection) (03/27/23 21:45) Ondansetron Injection (Ondansetron Inj (03/27/23 21:45) Ed Iv/Invasive Line Start (03/27/23:38) Ekg Tracing (03/27/23 22:02) Ekg Tracing (03/27/23 22:01) Cbc And Automated Diff (03/27/23 22:15) Basic Metabolic Panel (03/27/23 22:15) Troponin I Real (03/27/23 22:15) Protime With Inr (03/27/23 22:15) Partial Thromboplastin Time (03/27/23 22:15) Nitroglycerin 0.4 Mg Btl 25's (Nitroglyc (03/27/23 22:30) Fentanyl Injection (Fentanyl Injection (03/27/23 22:45) Orphenadrine Inj (Ed Only) (Orphenadrine (03/27/23 23:00) Medications Given in ED Current Medications Medications Dose Ordered Sig/Jm Route Start Time Stop Time Status Last Admin Dose Admin Fentanyl Citrate 50 mcg ONCE ONCE IVP 03/27/23 21:45 03/27/23 21:46 DC 03/27/23 21:53 50 MCG Fentanyl Citrate 50 mcg ONCE ONCE IVP 03/27/23 22:45 03/27/23 22:46 DC 03/27/23 22:51 50 MCG Nitroglycerin 1 TAB Q 5 MIN X 3 NEEDED PRN SL 03/27/23 22:30 03/27/23 22:24 0.4 MG Ondansetron HCl 4 mg ONCE ONCE IVP 03/27/23 21:45 03/27/23 21:46 DC 03/27/23 21:49 4 MG Orphenadrine Citrate 60 mg ONCE ONCE IV 03/27/23 23:00 03/27/23 23:01 DC 03/27/23 23:04 60 MG Vital Signs/I&O 03/27/23 03/28/23 21:32 00:29 Pulse 88 87 B/P (MAP) 180/119 (139) 139/101 Pulse Ox 97 95 O2 Delivery Room Air Room Air 03/27/23 23:59 Intake Total 1000 ml Balance 1000 ml Capillary Refill : Progress Note #1: Time: 22:58 Progress Note Patient re-evaluated - declined to wear the sling. The xrays negate shoulder dislocation, although I specifically felt deformity consistent with dislocation prior to xrays. Sitting up in the bed a large amount of swelling is appreciated over the shoulder joint. No palpable deformity now at the glenoid. Pulses are still intact. He points to distal biceps area and AC space as painful as well. No subcutaneous crepitance, no skin lesions, no erythema, no increased warmth. He resists passive ROM due to pain. Patient now states that he remembers moving several concrete blocks with a friend about 2 weeks ago. He states his bladder cancer doc told him no steroids (it would affect his cancer). He cannot take NSAIDS as he is on Xarelto. Will add Norflex 60mg. Patient evaluation today includes history and physical exam, CBC, BMP, troponin, coags, EKG and left shoulder xray (3v). HIs labs are independently reviewed and interpreted by me. His CBC shows a WBC of 13.4 with 84% segmented neutrophils; normal H&H and platelets. BMP shows normal renal function with BUN 23 and Creat 1.15; glucose elevated at 165. troponin (greater than 4 hours post onset of severe pain) is undetectable. COags consistent with xarelto use - PT 25.5, INR 2.2, PTT 41. 3v of the left shoulder show no obvious dislocation or bony injury. EKG shows rate controlled afib without any other abnormalities. He was initially given 50mg fentanyl IV without much relief. I switched to some ntg SL, thinking this may be a very atypical presentation of ACS. No relief whatsoever. DDx does include, dislocation, septic joint, occult fracture, necrotizing fasciitis, arterial ischemia. His EKG is reassuring and troponin is neg, good pulses in the extremity ruling out ischemia to the limb. Joint is not red, warm and he has no fever - septic joint low on the list. The joint is quite swollen - possibly bursitis? No subq crepitance or erythema to the arm - highly doubt necrotizing fasciitis. Patient is given 50mcg more of fentanyl and then norflex 60mg. Will attempt to get him pain controlled and follow him up with Ortho. Joint injection may be what he needs to further treat this pain. Progress Note #2: Time: 00:43 ECG Initial ECG Impression Date: Mar 27, 2023 Initial ECG Impression Time: 22:07 Initial ECG Rate: 77 Initial ECG Rhythm: A Fib/Flutter Initial ECG Impression: Atrial Fibrillation Diagnostic Imaging Diagonstic Imaging: Xray Comments NAME: [facility] REC#: [id number] PT STATUS: REG ER : 1945 PHYSICIAN: LESLIE CAMACHO MD ADMIT DATE: 03/27/23/ER Draft Date of Exam:03/27/23 SHOULDER, LEFT, 3 VIEWS INDICATION: Left shoulder pain for 2 weeks with increasing intensity over the last 24 hours. COMPARISONS: None FINDINGS: 3 views of the left shoulder provided. The films are slightly underpenetrated. There is otherwise no fracture or subluxation seen. The left humeral head appears well-seated within the left glenoid. IMPRESSION: No fracture or subluxation seen with an intact left glenohumeral joint. Dictated on workstation # [id number] Dict: 03/27/232218 Trans: 03/27/232223 [facility] [id number] Interpreted by: MARTIN SMITH MD Electronically signed by: Departure Impression Primary Impression: Acute pain of left shoulder Disposition: HOME, SELF-CARE Condition: Stable Departure-Patient Inst. Decision time for Depature: 23:53 Referrals: EDINSON FARNSWORTH MD (PCP/Family) Primary Care Physician FANNIE SORIA MD Patient Instructions: Shoulder Pain ED Add. Discharge Instructions: Wear a sling for comfort. Apply ice packs to the left shoulder for swelling and pain. Take the oxycodone 5mg tablets every 4-6 hours as needed for pain, with 1 additional tylenol tablet. Flexeril 5mg tablets, 1 every 8 hours for spasm/pain. Never take more than 2 extra strength tylenol at a time. Please follow up with your primary care doctor as well as the Ortho Doctor (I have provided his name and contact information.) Return to the Emergency Department for any new, concerning or emergent complaints. Scripts Cyclobenzaprine HCl (Cyclobenzaprine HCl) 5 Mg Tablet 5 MG PO Q8H PRN for SPASMS, #10 TAB Prov: LESLIE CAMACHO MD 03/28/23 Oxycodone HCl/Acetaminophen (Percocet 5-325 mg Tablet) 1 Each Tablet 1 TAB PO Q6H for PAIN-MODERATE MDD 6 TABS, #12 TAB Prov: LESLIE CAMACHO MD 03/27/23 Copy Copies To 1: EDINSON FARNSWORTH MD Copies To 2: FANNIE SORIA MD, KATHRYN M MD Mar 27, 2023 21:31
[2023-03-27] MEDS ORDERED: ONDANSETRON INJECTION 4 MG/2 ML (SDV) IVP ONE (21:45)
[2023-03-27] MEDS ORDERED: NS IV 1000 ML 1,000 ML IV SCH (21:45)
[2023-03-27] MEDS ORDERED: proPOfol INJECTION 200 MG/20 ML VIAL IV ONE (21:45)
[2023-03-27] MEDS ORDERED: fentaNYL INJECTION 100 MCG/2 ML VIAL IVP ONE ×2 (21:45→22:45)
[2023-03-27 22:22] LABS: BASOPHILS % (AUTO) 0 % (0-10); EOSINOPHILS # (AUTO) 0.1 10^3/uL (0.0-0.3); EOSINOPHILS % (AUTO) 1 % (0-10); HEMATOCRIT 42 % (40-54); HEMOGLOBIN 13.9 g/dL (13.3-17.7); LYMPHOCYTES # (AUTO) 1.6 10^3/uL (1.0-4.0); LYMPHOCYTES % (AUTO) 12 % (12-44); MEAN CORPUSCULAR HEMOGLOBIN 30 pg (25-34); MEAN CORPUSCULAR HGB CONC 33 g/dL (32-36); MEAN CORPUSCULAR VOLUME 90 fL (80-99); MEAN PLATELET VOLUME 9.5 fL (9.0-12.2); MONOCYTES # (AUTO) 0.4 10^3/uL (0.0-1.0); MONOCYTES % (AUTO) 3 % (0-12); NEUTROPHILS # (AUTO) 11.2 10^3/uL (1.8-7.8); NEUTROPHILS % (AUTO) 84 % (42-75); PLATELET COUNT 225 10^3/uL (130-400); WHITE BLOOD COUNT 13.4 10^3/uL (4.3-11.0)
--- NOTE | 2023-03-27 22:25 | Diagnostic Imaging Report ---
INDICATION: Left shoulder pain for 2 weeks with increasing intensity over the last 24 hours. COMPARISONS: None FINDINGS: 3 views of the left shoulder provided. The films are slightly underpenetrated. There is otherwise no fracture or subluxation seen. The left humeral head appears well-seated within the left glenoid. IMPRESSION: No fracture or subluxation seen with an intact left glenohumeral joint. Dictated by: Dictated on workstation # [id number]
[2023-03-27 22:26] LABS: CHLORIDE 107 MMOL/L (98-107); POTASSIUM 4.2 MMOL/L (3.6-5.0); SODIUM 138 MMOL/L (135-145)
[2023-03-27 22:28] LABS: CALCIUM 8.6 MG/DL (8.5-10.1); GLUCOSE 165 MG/DL (70-105)
[2023-03-27 22:29] LABS: INR 2.2 (0.8-1.4); PROTHROMBIN TIME PATIENT 25.5 SEC (12.2-14.7)
[2023-03-27 22:30] LABS: CARBON DIOXIDE 22 MMOL/L (21-32)
[2023-03-27] MEDS ORDERED: NITROGLYCERIN 0.4 MG SL TABLETS BTL 25'S SL PRN (22:30)
[2023-03-27 22:32] LABS: CREATININE SERUM 1.15 MG/DL (0.60-1.30); GFR ESTIMATED 66
[2023-03-27 22:33] LABS: BUN/CREATININE RATIO 20
[2023-03-27] MEDS ORDERED: ORPHENADRINE 60 MG/2 ML AMP (ED ONLY) IV ONE (23:00)
[2023-03-27] MEDS ORDERED: OXYC1TAB87 PO (23:58)
[2023-03-28 00:29] VITALS: BP 139/101
[2023-03-28] MEDS ORDERED: CYCL5TAB PO (00:43)
== END 2023-03-28 00:50 | disposition home or self-care (01) ==
LOC: EDUNIT# 21:21 → ER 21:24
DX: M25.512 Pain in left shoulder (principal); R11.2 Nausea with vomiting, unspecified
CPT/HCPCS: 73030; 80048; 84484; 85025; 85610; 85730; 93005; 99284; A4565; 36415